=== PATIENT | male | born 1955 | race Caucasian/White ===

== ENCOUNTER 2018-11-26 10:04 | Inpatient (IN) | payer OTHER, SELFPAY ==
[2018-11-12 07:56] VITALS: BMI 36.8
[2018-11-26] VITALS (17 sets, daily range): BP systolic 125–159; BP diastolic 74–105; PULSE 64–100; RESP 12–18; TEMP 36.3–37.4; O2SAT 91–97; BMI 36.8
--- NOTE | 2018-11-26 | DI.RAD.S_ITS ---
PROCEDURE: XR LUMBAR SPINE 2-3V INDICATIONS: C 4-6, C5-6, C6-7 ACDF W/ ANTERIOR INSTRUMENTATION TECHNIQUE: Multiple intraoperative fluoroscopic views of the lumbar spine were acquired. COMPARISON: [facility], , L-SPINE 2-3 VIEWS, 12/19/2006, 10:08. FINDINGS: Bones: Intraoperative fluoroscopic views demonstrate anterior fusion and discectomy of the lower cervical spine. IMPRESSION: Fluoroscopic spot images of ACDF of the lower cervical spine. Dictated by: Margarita Wiggins M.D. on 11/26/2018 at 15:01 Approved by: Margarita Wiggins M.D. on 11/26/2018 at 15:02
[2018-11-26] MEDS: LACTATED RINGERS 1,000 ML 42 ML IV ×2 (11:32→12:58)
--- NOTE | 2018-11-26 11:47 | PM.PREOP ---
Pre-operative Note Interval Note History & Physical reviewed/Exam performed by Physician: Yes Changes to H&P: No
[2018-11-26] MEDS: CEFAZOLIN 2 GM/100 ML FROZ.PIGGY IV ×2 (12:20→19:57)
--- NOTE | 2018-11-26 13:04 | SUR.OPER ---
Supine on padded OR bed, head on donut, rolled towel between shoulders vertically, arms tucked at sides with gel pads and wrapped with drawsheet, legs uncrossed, safety belt at thigh, tape over blanket over lower legs.
--- NOTE | 2018-11-26 13:26 | PC.NURSE ---
Day shift: Pt not on AC unit at this time.
[2018-11-26] MEDS: BUPIVACAINE 0.25% W/ EPI 30 ML VIAL INJ (14:46)
--- NOTE | 2018-11-26 14:53 | PM.OP.1 ---
Operative Date/Time/Diagnoses Date of procedure: 11/26/18 Time of procedure: 12:54 Pre-op diagnosis: 1. C4-5, C5-6 spinal stenosis 2. 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 C4-5, C5-6 anterior cervical diskectomy and fusion 2. C4-5, C5-6 anterior interbody cage placement 3. C4-5, C5-6 anterior instrumentation with plate and screw placement in C4, C5 and C6 vertebrae 4. Utilization of microsurgical technique and operating microscope Same procedure as scheduled: Yes Indications: Patient has been having chronic neck pain and worsening cervical radiculopathy. Patient failed multiple conservative management with worsening pain weakness and numbness in her upper extremity. Patient has been having difficulty performing activity of daily living. After discussing risks benefits of treatment options, patient elected proceed with surgery. Surgeon: Sarina Carter Software Program Manager: Richard Hussein Click Yes if Unassisted: No Anesthesia Type: General Operative Notes Closure Type: primary Specimen(s): none sent Prosthetic devices, grafts, tissues, transplants, or devices: Globus extend plate, PEEK cages Estimated Blood Loss (mL): 50 Blood products transfused: none Procedure in detail: Patient was seen in the preoperative area. Risks and benefits of the surgery was discussed with the patient. Operative consent was obtained and placed in the chart. Patient was then taken to the operative room. Prophylactic antibiotic was given less than 0.5 hr prior to skin incision. General anesthesia was administered. Patient was placed into a supine position on her radiolucent table. Bilateral shoulders were taped down to allow proper C-arm imaging. Anterior cervical area was prepped and draped in a sterile fashion. Time-out was performed at this time. Using lateral C-arm imaging, the level between C4 and C6 was identified and marked on patient's neck. A oblique incision from midline towards medial border of sternocleidomastoid muscle was made. The platysma muscle was incised in line with skin incision. Metzenbaum scissor was used to develop the plane between the medial border of sternocleidomastoid d and the strap muscles medially. The carotid sheath and its contents were identified and protected behind the hand-held retractor during the entire case. The plane between the carotid sheath and strap muscles was developed with Metzenbaum scissors. Dissection was made down to the level of the anterior cervical fascia. Longus colli muscle was incised on the anterior aspect of vertebral bodies bilaterally from C4-C6. Spinal needle was placed into the C4-5 disc space and confirmed with lateral C-arm imaging. Using microsurgical technique and operative microscope, anterior cervical diskectomy was performed at C4-5 and C5-6 level. This was done by removing the disc material, removing the anterior and posterior osteophytes posterior longitudinal ligaments along with performing bilateral foraminotomies at both levels. Patient was found to have severe central and foraminal stenosis at both levels. Patient's stenosis was fully decompressed after decompression was completed. After the diskectomy was completed, 2 anterior interbody cages were obtained. The cages were packed with DBM bone grafting material. One cage each along with the bone grafting material was then packed into the interbody spaces from C4-6 with one cage into each interbody level. There was large anterior osteophytes at C5 and C6 level. Rongeur was used to removed anterior osteophytes from both anterior and posterior aspects of C4-C5 and C6 level for decompression purposes as well as to improve hardware fitting. After the cages were placed, the anterior cervical plate was stabilized to the C4-C6 vertebrae using 2 screws at each each level. Total 6 screws were placed. After confirming placement of the hardware with AP and lateral C-arm imaging, the screws were locked into the plate using the locking mechanism and torque limiting screwdriver. After the hardware was placed and confirmed with AP and lateral C-arm imaging, the wound was irrigated with sterile normal saline. The platysma muscle and the subcutaneous tissue was closed with 2-0 Vicryl. The skin was closed with 4-0 Monocryl and Steri-Strips. Patient tolerated the procedure well. Patient was transferred recovery room in stable condition. There were no complications. Complications: none Post-operative Condition: stable Disposition: PACU Plan for aftercare: Admit to inpatient hospital
[2018-11-26] MEDS: fentaNYL 100 MCG/2 ML INJ 50 MCG IV ×3 (15:37→16:02)
[2018-11-26] MEDS: SODIUM CHLORIDE 0.9% 1,000 ML 100 ML IV (17:05)
[2018-11-26] MEDS: GABAPENTIN 300 MG CAPSULE PO (17:11)
[2018-11-26] MEDS: OXYCODONE IR 5 MG TABLET 10 MG PO ×3 (17:11→23:02)
[2018-11-26] MEDS: PRAMIPEXOLE 1 MG TABLET 1.5 MG PO (17:12)
[2018-11-26] MEDS: hydrOXYzine pamoate 25 MG CAPSULE PO ×2 (17:38→21:45)
[2018-11-26] MEDS: HYDROMORPHONE 1 MG INJ 0.5 MG IV (18:32)
[2018-11-26] MEDS: SENNOSIDES 8.6 MG TABLET 17.2 MG PO (19:56)
[2018-11-26] MEDS: PANTOPRAZOLE 40 MG TABLET PO (19:56)
[2018-11-26] MEDS: DOCUSATE 100 MG CAPSULE PO (19:57)
[2018-11-26] MEDS: BUSPIRONE 15 MG TABLET PO (19:59)
[2018-11-27 00:10] VITALS: BP 118/72; PULSE 94; RESP 20; TEMP 37.1; O2SAT 95
[2018-11-27] MEDS: OXYCODONE IR 5 MG TABLET 10 MG PO ×3 (03:31→11:05)
[2018-11-27] MEDS: hydrOXYzine pamoate 25 MG CAPSULE PO (03:32)
[2018-11-27] MEDS: CEFAZOLIN 2 GM/100 ML FROZ.PIGGY IV (03:33)
[2018-11-27] MEDS: SODIUM CHLORIDE 0.9% 1,000 ML 100 ML IV (03:35)
[2018-11-27 04:22] VITALS: PULSE 71; RESP 16; O2SAT 96
[2018-11-27 05:57] VITALS: BP 124/72; PULSE 71; RESP 18; TEMP 37.4; O2SAT 97
[2018-11-27] MEDS: ACETAMINOPHEN 325 MG TABLET 650 MG PO (07:35)
[2018-11-27 08:00] VITALS: BP 136/81; PULSE 84; RESP 17; TEMP 37.2; O2SAT 96
[2018-11-27] MEDS: GABAPENTIN 600 MG TABLET PO (08:27)
[2018-11-27] MEDS: buPROPion XL 150 MG TAB 300 MG PO (08:27)
[2018-11-27] MEDS: PRAMIPEXOLE 1 MG TABLET 1.5 MG PO (08:27)
[2018-11-27] MEDS: DOCUSATE 100 MG CAPSULE PO (08:27)
[2018-11-27] MEDS: PANTOPRAZOLE 40 MG TABLET PO (08:27)
[2018-11-27] MEDS: buPROPion SR 150 MG TAB PO (08:27)
[2018-11-27 09:26] VITALS: O2SAT 95
--- NOTE | 2018-11-27 10:14 | OT.IP.EVAL ---
Current Diagnoses Other spondylosis with radiculopathy, cervical region (11/26/18) Spinal stenosis, cervical region (11/26/18) Surgery Performed Operation Date: 11/26/18 12:15 Actual Procedures p C4-5,C5-6 ACDF w/anterior instrumentation - Sarina Carter MD Past Medical History (Last Updated 11/12/18 @ 14:41 by Mariah Mckeon RN) Anxiety (Acute) Arthritis (Acute) Back pain (Acute) Compartment syndrome (Acute ~2012) Dizziness (Acute) Fatty liver (Acute) GERD (gastroesophageal reflux disease) (Acute) Gout (Acute ~1989) HLD (hyperlipidemia) (Acute) Kidney stones (Acute) Neck pain (Acute) Numbness (Acute) Numbness and tingling in left arm (Acute) CINDI on CPAP (Acute) Pneumonia (Acute) RBBB (right bundle branch block) (Acute) RLS (restless legs syndrome) (Acute) Surgical History (Last Updated 11/12/18 @ 09:28 by Mariah Mckeon RN) Hx of arthroscopy of left knee (Acute) Hx of elbow surgery (Acute) Hx of right inguinal hernia repair (Acute) Hx of tonsillectomy (Acute) Hx of umbilical hernia repair (Acute) Status post left unicompartmental knee replacement (Acute ~2012) Occupational Therapy Inpatient Evaluation/Re-Eval M1 PT/OT-IP Prior Functional Status Start: 11/27/18 08:25 Freq: NEEDED Status: Active Protocol: Document 11/27/18 10:14 PJJason (Rec: 11/27/18 12:58 PJM [id number]) Medical Review Prior Functional Status Medical History Reviewed Yes Diet/Fluid Consistency Regular Communication WNL Mobility and Gait Pt was independent with all mobility without a device. Activities of Daily Living and IADL's Independent for ADLs, IADLs, driving. Prior Functional Level (Other details) Pt is retired, but very active . 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 Social History Household Members family Living Arrangements House Number of Floors (Floors) One Floor Number of Stairs To Enter/Railing? 2 HOLGER without rails to enter Home Environment Standard Height Toilet,Walk in Shower Home Equipment Front Wheel Walker,Straight Cane,Shower Seat with Backrest Employment Status Retired Additional Social History Comment Pt lives in [facility] with his dtr and 2 grandchildren ages 4 yrs and 16 months. His mother and friend Samira will stay with him temporarily to assist if needed. M2 OT-IP Current Condition Start: 11/27/18 12:37 Freq: Status: Active Protocol: Document 11/27/18 10:14 PJM (Rec: 11/27/18 12:58 PJ [id number]) Occupational Therapy Current Condition Current Condition Evaluation Date 11/27/18 Treatment Diagnosis decr'd self care s/p C4-6 ACDF Diagnosis Onset Date 11/26/18 Post Operative Precautions Cervical Spine Precautions Soft Collar for Comfort,No Heavy Lifting,Log Roll M3 OT- IP Subjective and Pain Start: 11/27/18 12:37 Freq: Status: Active Protocol: Document 11/27/18 10:14 PJM (Rec: 11/27/18 12:58 PJ [id number]) OT- Subjective Occupational Therapy Visit Type Type Initial Evaluation Visit Start Time 09:43 Visit Stop Time 10:14 Total Visit Minutes 31 Notes Pt's girlfriend here for education this session. Occupational Therapy Visit Comments Patient Comments I feel really good today. The pain over my L shoulder blade is gone. Patient/Caregiver Goals to get back to active life and go on vacation in early December to [place] OT Pain Assessment Pain When Pain Assessed After Treatment Pain Present Pain Present Pain Reported Location Posterior Neck Intensity 2 Scale Used Numeric (1 - 10) Description Aching,Acute Pain Behaviors Guarding Management Techniques Distraction,Re-positioning, Timing of Activity with Medications M4 OT- IP ADL's Start: 11/27/18 12:37 Freq: Status: Active Protocol: Document 11/27/18 10:14 PJM (Rec: 11/27/18 12:58 PJ [id number]) OT STI-Rvol-Bvygjwc General Evaluation Self-Feeding Ability Independent Comments OT Self-Feeding Comments pt declines any swallowing deficits OT ADL-Grooming General Evaluation Grooming Ability Independent Comments OT Grooming Comments standing at sink OT ADL-Oral Care General Eval Oral Care Ability Independent Comments Oral Care Comments standing at sink OT ADL-Dressing General Eval Upper Body Dressing Ability Standby Assistance Lower Body Dressing Ability Independent Comments OT Dressing Comments Provided education re: body mechanics OT ADL-Toileting General Evaluation Toileting Ability Independent OT ADL-Bathing Bathing Type Bathing Type Shower Comments OT Bathing Comments pt declines to shower here; provided education re: body mechanics and methods to keep incision dry, girlfriend can assist PRN M5 OT- IP IADL's Start: 11/27/18 12:37 Freq: Status: Active Protocol: Document 11/27/18 10:14 PJM (Rec: 11/27/18 12:58 PJM [id number]) OT-Instrumental Activities of Daily Living Deficits IADL Deficits Identified Deficits Home Safety Awareness Awareness of Need for Assistance at Home Good Awareness Ability to Problem Solve Emergency Able to Problem Solve Situations Medication Management Medication Management No Deficits Identified Money Management Money Management No Deficits Identified Meal Preparation Meal Preparation Caregiver Provides Assist Meal Preparation Comments family to assist PRN Biostatistics Professor Biostatistics Professor Caregiver Provides Assist Biostatistics Professor Comments family to assist PRN Driving Driving Caregiver Provides Assist Driving Comments family to assist PRN M6 OT- IP Functional Cognition Start: 11/27/18 12:37 Freq: Status: Active Protocol: Document 11/27/18 10:14 PJM (Rec: 11/27/18 12:58 PJM [id number]) Cognitive Factors Limiting Selfcare Function Cognitive Ability Level of Alertness Alert Patient Orientation Name,Age,Birthday,Month,Date, Year,Day of Week,Place, Situation Attention Span Ability Capable of Focused Attention, Capable of Sustained Attention Ability to Follow Commands Able to Follow Multi-Step Commands Memory Description No Deficits Noted Safety Awareness No Deficits Noted Problem Solving Ability No deficits Noted Executive Function Ability No Deficits Noted Cognitive Comments Cognitive Assessment Comments Pt demonstrates and verbalizes good understanding of C spine precautions and all education OT- Vision and Hearing OT- Hearing Assessment OT- Hearing Assessment WFL OT- Vision Assessment Visual Acuity WFL M7 OT- IP Mobility and Balance Start: 11/27/18 12:37 Freq: Status: Active Protocol: Document 11/27/18 10:14 PJM (Rec: 11/27/18 12:58 PJM [id number]) OT- Bed Mobility Assessment Rolling Type of Rolling Log Rolling,Roll to Right Level of Assistance Independent Supine to Sit Supine to Sit Assist Independent Scooting Scooting to Edge of Bed Independent OT-Transfer Assessment Sit to and From Stand Sit to and from Stand Independent Transfers Transfer Ability Independent Technique Transfer Destination Bed,Car,Toilet Transfer Technique Stand Step Pivot Devices Transfer Assistive Devices None Comments Mobility Comments Pt up in room ad kiki without a device OT- Gait Assessment Gait Gait Assistance Required: Independent Distance (Feet) 20 Assistive Devices Assistive Device None Comments Gait Ability Comments see P.T. notes for further details OT- Balance Assessment Sitting Balance and Reactions Static Sitting Balance Ability Good Dynamic Sitting Balance Ability Good Standing Balance and Reactions Static Standing Balance Ability Good Dynamic Standing Balance Ability Good M8 OT- IP Objective Assessments Start: 11/27/18 12:37 Freq: Status: Active Protocol: Document 11/27/18 10:14 PJM (Rec: 11/27/18 12:58 PJM [id number]) OT Gross Range of Motion Upper Extremity Range of Motion Assessment Within Functional Limits ROM Impairments did not test B shoulder scaption above 90 degrees due to recent C spine surgery, but WFL distally OT Strength Upper Extremity Strength Assessment Within Functional Limits Comments Strength Comments B shoulders at least 3/5 bu observation and WFL distally, no focal strength deficits OT- Coordination Assessment Comments Coordination Comments BUE WNL OT-Muscle Tone Assessment Muscle Tone WNL Yes OT Sensation Assessment Comments Summary Comments BUE WNL per pt Edema Edema Present M9 OT- IP Assessment and Plan Start: 11/27/18 12:37 Freq: Status: Active Protocol: Document 11/27/18 10:14 PJM (Rec: 11/27/18 12:58 PJM [id number]) OT Summary Assessment and Plan Potential Rehabilitation Potential Excellent Analytic Complexity at Evaluation Low Summary Progress Towards Goals Safe For Discharge Assessment Summary Low complexity OT assessment and all education completed with pt and his significant other today re: C spine precautions and adapted ADL techniques. They verbalize and demonstrate understanding of all education. Pt plans to d/c home today with 24 hr family assist today. No further OT services needed. Frequency of Treatment Frequency Of Treatment Discharge Discharge Recommendations OT Discharge Recommendations Home with Assistance Home Equipment Needs none
--- NOTE | 2018-11-27 11:30 | PC.NURSE ---
Day shift: Paperwork signed and all questions answered. Medicated for pain prior to car ride home. Taken to car in by DENTIST/OWNER. Pt has all personal belongings and MD scrips. Soft collar in place. Dressing is CDI.
--- NOTE | 2018-11-27 13:31 | CM.DANOTE ---
Discharge Planning/Care Management DCP: assessment: case received, EMR reviewed. Discussed in Team Rounds. Pt is a 63 year old male who admitted yesterday for a planned spinal/cervical surgery: Dr Carter. PPC: Salvador Jesus Payer: [employer]. Pt is functionally independent at baseline. OT/PT were ordered. OT note shows that pt did very well in the session, his girlfriend Samira participated in the caregiver training and will be assisting him at home. His mother will also offer prn assist. Went to check in with pt. KULWANT Kearns noted that he had been cleared for the d/c to home by ortho team. Soft Collar was in place. He d/c'd to home setting as per his plan with 21/10 family support before noon. CM Discharge Assessment Start: 11/27/18 13:29 Freq: Status: Discharge Protocol: Document 11/27/18 13:30 ITV (Rec: 11/27/18 13:31 ITV [id number]) Discharge Planning Assessment Advance Directives? Yes Advance Directives on File No History Provided By Medical Record Prior Living Arrangements House Household Members family Comment lives with his daughter and her 2 young children Discharge Plan Home Review Status In Process Pre-Anesthesia Assessment Start: 11/12/18 07:56 Freq: Status: Discharge Protocol: Document 11/12/18 07:56 CAB (Rec: 11/12/18 08:50 CAB [id number]) Pre-Anesthesia Assessment Patient Information Reviewed Via Phone Assessment Assessment Completed With Patient Diagnostic Results BMP/CMP,CBC,EKG Comment Outside labs/EKG scanned to record Primary Care Provider Salvador Jesus Medical Clearance Received Yes Seen Specialist in Last 12 Months Yes Specialist Seen Orthopedist Comment PCP pre-op clearance 10/05/18 scanned to record Primary Language [employer] Counter Representative Required No Height 185.42 cm Weight 126.552 kg Body Mass Index (BMI) 36.8 Hearing Ability Normal Visual Assist Magnifying Glass Dentition Type Full- Upper & Lower Barriers to Learning None Other Aids Yes: CPAP w/2L02 Hx Anesthesia Reactions No Hx Family Anesthesia Reaction No Hx Malignant Hyperthermia No Hx Blood Transfusions No Anesthesia Review Requested No alcohol intake former Alcohol Intake Frequency Other: Hx ETOH abuse, in remission Smoking Status Former smoker Tobacco type cigarettes how long ago did patient quit smoking Quit 1985 Substance Use Type marijuana Comment Edible marijuana Pain Present Pain Reported Musculoskeletal Symptoms Back Pain,Difficulty Walking, Joint Pain,Limited Range of Motion,Muscle Weakness,Neck Pain,Numbness,Radiating Pain into Limb,Tingling History of Falling (Recent or History of No ) Patient is completely paralyzed or No completely immobile Mental Status Oriented to own ability Is patient on oxygen? Yes Does patient have SAXENA/SOB Yes Hx Sleep Apnea Yes CPAP/BIPAP use prescribed and used routinely Will Bring CPAP/BIPAP DOS Yes Comment 2L02 bled into CPAP Currently Taking a Beta [place] No Can You Climb a Flight of Stairs Without No SOB Hx Chest Pain No Hx SOB Yes Hx Syncope or Dizziness Yes Anti-Coagulant Therapy No Has a Product Development Technician No Cardiac Testing No Hx Pacemaker/ICD No Pacemaker Rep Required? No Cardiac Clearance Received Not Applicable Diet Type At Home Regular dysphagia No Urinary Catheter Present No Hx Urinary Self Catheterization No Diabetes No Hx Drug Resistant Organism No Presence of External or Internal Medical Yes: CPAP Devices Marital Status Lives With none Prior Living Arrangements House Number of Floors (Floors) One Floor Support System Parent(s),Significant Other Does the Patient Have Assistance After Yes Surgery Patient Discharge Plan Description Return Home Comment Pt advised 1-2 night length of stay per Surgeon Feels Safe in Current Environment Yes Been Physically Hurt or Threatened By a No Person in Current Environment Do you have thoughts of harming yourself None or others? Are you currently considering suicide? No Do you have a plan to hurt yourself or No Plan others? Do You Have Any Spiritual Beliefs That No May Affect Your HC Choices? Do You Have Any Cultural Practices That No May Affect Your HC Choices? Comment LDS Who Can We Speak to About Patient's Care Family, friends Identifying Code for Release of Patient Declines to issue Information Health Care Proxy/Next of Kin Gloria (daughter) Health Care Proxy Emergency Contact Name Samira (GF) Emergency Contact Advance Directives? Yes: Information mailed to patient Advance Directives on File No Requested Patient Bring Advanced Yes Directives DOS PAC Instructions Bring CPAP/BIPAP,Do not shave/ clip surgical site,Durable medical equipment,Medications to take/avoid,Nasal antibiotic ,No ETOH/petroleum product on skin DOS,NPO,Post-op transportation,Pre-surgical wash,Sensory aids,Sturdy shoes /comfortable clothes,Do not bring valuables and remove jewelry
== END 2018-11-27 11:54 | disposition home or self-care (01) | DRG 473 ==
PROVIDERS: Admitting Provider Orthopaedic Surgery Orthopaedic Surgery of the Spine; Family Provider Family Medicine; PCP Family Medicine; Visit Provider Orthopaedic Surgery Orthopaedic Surgery of the Spine
PROC: 0RG20A0 Fusion of 2 or more Cervical Vertebral Joints with Interbody Fusion Device, Anterior Approach, Anterior Column, Open Approach (ICD-10-PCS; principal; 2018-11-26 12:15)
DX: M48.02 Spinal stenosis, cervical region (principal); M47.22 Other spondylosis with radiculopathy, cervical region; G47.30 Sleep apnea, unspecified; G25.81 Restless legs syndrome; F32.9 Major depressive disorder, single episode, unspecified; M25.78 Osteophyte, vertebrae
CPT/HCPCS: 72100; 76000; 94660; 94760; 97161; 97165; 97535; C1776; J0690; J1100; J1170; J2250; J2405; J2704; J3010

== ENCOUNTER 2019-08-28 07:39 | Emergency (ER) | payer OTHER, SELFPAY ==
[2018-11-26 16:30] VITALS: BMI 36.8
--- NOTE | 2019-08-28 07:42 | ED_ITS ---
HPI - Eye Problem General Chief complaint: Eye Problems Stated complaint: RT EYE/ RED Time Seen by Provider: 08/28/19 07:42 Source: patient Mode of arrival: Ambulatory Limitations: no limitations History of Present Illness HPI Narrative: 64M former smoker with history of GERD presents with a redness to his right over the course of the past day or 2. He denies any injury nor change in vision. He denies any pain. He states there has at times bit of a film overlying his visual field but if he blinks it improves. He had a little bit of drainage of 1 point but not in an ongoing fashion. He denies the use of con tacts. He denies any recent welding, exposure to UV light or other Related Data Home Medications Medication Instructions Recorded Confirmed pramipexole [Mirapex] 1.5 mg PO QD-BID PRN #0 10/12/10 11/26/18 bupropion HCl 300 mg PO QAM 11/12/18 11/26/18 bupropion HCl [Wellbutrin SR] 150 mg PO DAILY 11/12/18 11/26/18 buspirone 15 mg PO BEDTIME 11/12/18 11/26/18 gabapentin 300 mg PO TID PRN 11/12/18 11/26/18 meclizine 25 mg PO DAILY PRN 11/12/18 11/12/18 ondansetron 8 mg PO Q12H PRN 11/12/18 11/12/18 pantoprazole [Protonix] 40 mg PO BID 11/12/18 11/26/18 tadalafil [Cialis] 5 mg PO DAILY 11/12/18 11/12/18 testosterone [Fortesta] 5 pump TRANSDERMAL QAM 11/12/18 11/26/18 Previous Rx's Medication Instructions Recorded acetaminophen 650 mg PO Q6HR PRN #60 tab 11/27/18 docusate sodium [DOK] 100 mg PO BID #60 cap 11/27/18 hydroxyzine pamoate 25 mg PO Q4HR PRN #60 cap 11/27/18 oxycodone 10 mg PO Q4-6H PRN #60 tab 11/27/18 Allergies Allergy/AdvReac Type Severity Reaction Status Date / Time triazolam [From Halcion] AdvReac Severe Violent, Verified 11/12/18 09:12 aggitated zolpidem [From Ambien] AdvReac Severe Made me do Verified 11/12/18 09:12 crazy things Review of Systems Constitutional Constitutional: Denies chills, Denies fatigue, Denies fever(s), Denies frequent falls, Denies lethargy and Denies weakness Eyes Eyes: Denies change in vision, Reports eye discharge, Denies irritation and Denies loss of vision ENT Ears, Nose, Mouth, and Throat: Denies change in voice, Denies dizziness, Denies neck pain, Denies sore throat and Denies throat swelling Cardiovascular Cardiovascular: Denies chest pain, Denies irregular heart rhythm, Denies lightheadedness, Denies palpitations, Denies dyspnea, Denies dyspnea on exertion and Denies orthopnea Respiratory Respiratory: Denies cough, Denies dyspnea, Denies dyspnea on exertion and Denies wheezing Gastrointestinal Gastrointestinal: Denies abdominal pain, Denies change in bowel habits, Denies diarrhea, Denies nausea and Denies vomiting Genitourinary Genitourinary: Denies hematuria, Denies flank pain, Denies urinary incontinence and Denies urinary urgency Musculoskeletal Musculoskeletal: Denies back pain, Denies muscle weakness, Denies neck pain, Denies numbness and Denies tingling Integumentary/Breasts Skin/Breast: Denies pruritus, Denies erythema, Denies rash and Denies wounds Neurologic Neurologic: Denies behavioral changes, Denies confusion, Denies dizziness, Denies frequent falls, Denies loss of vision, Denies numbness, Denies tingling and Denies weakness Psychiatric Psychiatric: Denies anxiety, Denies behavioral changes, Denies confusion, Denies depression, Denies homicidal ideation and Denies suicidal ideation Endocrine Endocrine: Denies fatigue, Denies flushing and Denies palpitations Hematologic/Lymphatic Hematologic/Lymphatic: Denies easy bruising Allergic/Immunologic Allergic/Immunologic: Denies urticaria, Denies throat swelling and Denies wheezing Patient History Medical History Anxiety (Acute) Arthritis (Acute) Back pain (Acute) Compartment syndrome (Acute ~2012) Dizziness (Acute) Fatty liver (Acute) GERD (gastroesophageal reflux disease) (Acute) Gout (Acute ~1989) HLD (hyperlipidemia) (Acute) Kidney stones (Acute) Neck pain (Acute) Numbness (Acute) Numbness and tingling in left arm (Acute) CINDI on CPAP (Acute) Pneumonia (Acute) RBBB (right bundle branch block) (Acute) RLS (restless legs syndrome) (Acute) Surgical History Hx of arthroscopy of left knee (Acute) Hx of elbow surgery (Acute) Hx of right inguinal hernia repair (Acute) Hx of tonsillectomy (Acute) Hx of umbilical hernia repair (Acute) Status post left unicompartmental knee replacement (Acute ~2013) Social History household members: family Smoking Status: Former smoker alcohol intake: current Smoking Status: Former smoker alcohol intake frequency: 0-2 drinks per day Substance Use Type: marijuana Exam Narrative Exam Narrative: GEN: AOx3 and in mild distress EYES: Pupils are equal, round, and reactive to light and accommodation. Extraoccular muscles are intact bilaterally. R sided subconjunctival hemorrhage. No FB noted. No dye uptake with fluorescein. CHEST: Lungs are clear to auscultation bilaterally and free of wheezes, rales, or rhonchi. Heart rate is regular rhythm, there are no murmurs, clicks, rubs, or gallops. There is no chest wall tenderness. ABD: Abdomen is soft and nontender. There is no guarding or rebound. Bowel sounds are normal in all 4 quadrants. There is no mass or organomegaly. EXT: Full painless ROM of all extremities with no loss of sensation or strength. SKIN: Warm, pink, and dry. No erythema or rash Initial Vital Signs Initial Vital Signs: Vital Signs Temperature 96 F L 08/28/19 07:52 Pulse Rate 83 08/28/19 07:52 Respiratory Rate 13 08/28/19 07:52 Blood Pressure 168/93 H 08/28/19 07:52 Pulse Oximetry 96 08/28/19 07:52 Course Orders Ordered: Discontinued Medications Fluorescein Sodium (Ful-Juanita) 1 mg EYE-RIGHT NOW ONE Stop: 08/28/19 07:45 Last Admin: 08/28/19 07:51 Dose: 1 mg Documented by: FEDERICO Proparacaine HCl (Parcaine 0.5% Ophth Amaya) 1 drops EYE-RIGHT NOW ONE Stop: 08/28/19 07:43 Last Admin: 08/28/19 07:50 Dose: 1 drop Documented by: FEDERICO Sulfacetamide (Bleph-10 Prepack) 1 bottle MISC SEEINSTR ONE Stop: 08/28/19 08:02 Last Admin: 08/28/19 08:24 Dose: 1 bottle Documented by: FEDERICO Vital Signs Vital signs: Vital Signs - 8 hr 08/28/19 07:52 08/28/19 08:26 Temperature 96 F L Pulse Rate 83 80 Respiratory Rate 13 Blood Pressure 168/93 H 152/72 H Pulse Oximetry 96 MDM - Eye Problem MDM Narrative Medical decision making narrative: Multiple etiologies for patient's symptoms considered including: [Conjunctivitis versus foreign body versus angle closure glaucoma versus other] Patient's symptoms improved or duration of stay with above-stated therapies. Findings and discharge diagnosis discussed with patient/family followed by verbalization of understanding Return precautions discussed with patient/family whom verbalize understanding. Discharge Plan Departure Patient Disposition: Home Clinical Impression: Subconjunctival bleed Qualifiers: Laterality: right Qualified Code(s): H11.31 - Conjunctival hemorrhage, right eye Conjunctivitis Qualifiers: Conjunctivitis type: acute Acute conjunctivitis type: unspecified Laterality: right Qualified Code(s): H10.31 - Unspecified acute conjunctivitis, right eye Discharge Date/Time: 08/28/19 08:27 Instructions: Conjunctivitis, DI for Subconjunctival Hemorrhage Activity Restrictions/Additional Instructions: *You have been diagnosed with [ subconjunctival hemorrhage with possible early conjunctivitis ] *What to do: *Take medications as directed *Follow up with your primary care provider in 2-3 days, call for an appointment. Let them know you were seen in the Emergency Department and that we ask that you be seen in follow up *Return to ER if you should have any new, worsening or concerning symptoms, such as [deep eye pain, vision change, or other worsening symptoms ] Prescriptions: No Action pramipexole [Mirapex] 0.25 MG tablet 1.5 mg PO QD-BID PRN (Reason: RLS) Qty: 0 RF: 0 ondansetron 8 mg Tablet,Disintegrating 8 mg PO Q12H PRN (Reason: Nausea) RF: 0 meclizine 25 mg Tablet 25 mg PO DAILY PRN (Reason: Dizziness) RF: 0 pantoprazole [Protonix] 40 mg Tablet,Delayed Release (Dr/Ec) 40 mg PO BID RF: 0 gabapentin 300 mg Capsule 300 mg PO TID PRN (Reason: RLS) RF: 0 buspirone 15 mg Tablet 15 mg PO BEDTIME RF: 0 bupropion HCl 300 mg Tablet Extended Release 24 Hr 300 mg PO QAM RF: 0 tadalafil [Cialis] 5 mg Tablet 5 mg PO DAILY RF: 0 testosterone [Fortesta] 10 mg/0.5 gram /actuation Gel In Metered-Dose Pump 5 pump TRANSDERMAL QAM RF: 0 bupropion HCl [Wellbutrin SR] 150 MG tablet sustained-release 12 hr 150 mg PO DAILY RF: 0 acetaminophen 325 mg Tablet 650 mg PO Q6HR PRN (Reason: Pain, Mild (1-3)) Qty: 60 RF: 0 docusate sodium [DOK] 100 mg Capsule 100 mg PO BID Qty: 60 RF: 0 oxycodone 5 mg Tablet 10 mg PO Q4-6H PRN (Reason: Pain, Severe (7-10)) Qty: 60 RF: 0 hydroxyzine pamoate 25 mg Capsule 25 mg PO Q4HR PRN (Reason: Nausea And Vomiting) Qty: 60 RF: 0 Referrals: Dario Cooper MD [Physician] - Salvador Jesus DO [Primary Care Provider] -
[2019-08-28] MEDS: PROPARACAINE 0.5% OPHTH SOL 1 DROPS EYE-RIGHT (07:50)
[2019-08-28] MEDS: FLUORESCEIN 1 MG STRIP EYE-RIGHT (07:51)
[2019-08-28 07:52] VITALS: BP 168/93; PULSE 83; RESP 13; TEMP 35.5; O2SAT 96
[2019-08-28] MEDS: SULFACETAMIDE 10% OPHTH PREPACK 1 BOTTLE MISC (08:24)
[2019-08-28 08:26] VITALS: BP 152/72; PULSE 80
--- NOTE | 2019-08-28 08:26 | PC.NURSE ---
eye exam by
== END 2019-08-28 08:27 | disposition home or self-care (01) ==
PROVIDERS: Emergency Provider Emergency Medicine; Family Provider Family Medicine; PCP Family Medicine
DX: H11.31 Conjunctival hemorrhage, right eye (principal); H10.31 Unspecified acute conjunctivitis, right eye
CPT/HCPCS: 99282

== ENCOUNTER → 2020-05-16 14:49 | Outpatient (CLI) | payer OTHER, SELFPAY ==
[2018-11-26 16:30] VITALS: BMI 36.8
[2020-05-16 15:57] LABS: BUN Creatinine Ratio 17.6 (6-22); Blood Urea Nitrogen 16 mg/dL (9-20); Calcium 9.5 mg/dL (8.4-10.2); Carbon Dioxide 32 mmol/L (22-32); Chloride 105 mmol/L (98-107); Estimated Glomerular Filt Rate > 60.0 mL/min (>60); Glucose 99 mg/dL (80-110); HEMOLYSIS < 15 (0-50); Sodium 139 mmol/L (137-145)
== END ==
PROVIDERS: Family Provider Family Medicine; PCP Family Medicine; Referring Provider Internal Medicine Cardiovascular Disease; Visit Provider Internal Medicine Cardiovascular Disease
DX: I10 Essential (primary) hypertension (principal)
CPT/HCPCS: 36415; 80048

== ENCOUNTER → 2020-09-05 09:45 | Outpatient (CLI) | payer MEDICARE, OTHER, SELFPAY ==
[2018-11-26 16:30] VITALS: BMI 36.8
--- NOTE | 2020-09-05 10:00 | DI.CT.S_ITS ---
PROCEDURE: CT CHEST WO CON INDICATIONS: shortness of breath TECHNIQUE: Noncontrast 5 mm thick sections acquired from the pulmonary apices to the posterior costophrenic angles. 1 mm lung window, 5 mm thick coronal and sagittal and 7 mm axial MIP reformats were then acquired. For radiation dose reduction, the following was used: automated exposure control, adjustment of mA and/or kV according to patient size. COMPARISON: None. FINDINGS: Image quality: Excellent. Lungs and pleura: No acute air space opacities. No pleural effusions or pneumothorax. Central and peripheral airways are patent and normal in caliber. Mediastinum: Heart size is normal. No pericardial effusion. No mediastinal adenopathy by size criteria. Thoracic aorta and central pulmonary arteries are normal in size. Esophagus is normal in caliber. No hiatal hernia. Bones and chest wall: No suspicious bony lesions. No vertebral body compression fractures. No axillary or supraclavicular adenopathy by size criteria. Thyroid gland appears normal where well seen . Abdomen: Visualized upper abdominal solid organs and bowel loops appear normal in the absence of contrast. IMPRESSION: Normal for age, source of current shortness of breath symptoms is not seen. Dictated by: Gagan Pierce M.D. on 09/05/2020 at 11:20 Approved by: Gagan Pierce M.D. on 09/05/2020 at 11:22
== END ==
PROVIDERS: Family Provider Family Medicine; PCP Family Medicine; Referring Provider Physician Assistant; Visit Provider Physician Assistant
DX: R06.02 Shortness of breath (principal); R91.1 Solitary pulmonary nodule
CPT/HCPCS: 71250

== ENCOUNTER 2020-11-09 11:52 | Observation (INO) | payer MEDICARE, OTHER, SELFPAY ==
[2018-11-26 16:30] VITALS: BMI 36.8
[2020-11-09] VITALS (10 sets, daily range): BP systolic 133–170; BP diastolic 78–99; PULSE 64–80; RESP 14–16; TEMP 36.6–37.1; O2SAT 94–98; BMI 36.9
--- NOTE | 2020-11-09 12:08 | DI.RAD.S_ITS ---
PROCEDURE: XR CHEST 1V INDICATIONS: Possible stroke TECHNIQUE: One view of the chest was acquired. COMPARISON: [facility], CT, THORAX WITHOUT CONTRAST, 03/16/2015, 11:17. [facility], CR, CHEST 2 VIEW, 11/06/2010, 11:04. [facility], CR, CHEST 2 VIEW, 10/24/2010, 9:10. FINDINGS: Surgical changes and devices: ACDF. Lungs and pleura: Lungs are clear. No pleural effusions or pneumothorax. Mediastinum: Mediastinal contours appear normal. Heart size appears prominent. Bones and chest wall: No suspicious bony lesions. Overlying soft tissues appear unremarkable. IMPRESSION: No acute cardiopulmonary abnormality. Heart size appears prominent. Dictated by: Tu Garcia M.D. on 11/09/2020 at 12:54 Approved by: Tu Garcia M.D. on 11/09/2020 at 12:55
--- NOTE | 2020-11-09 12:09 | DI.CT.S_ITS ---
PROCEDURE: CT HEAD/BRAIN WO CON INDICATIONS: neuro changes/difficulty speaking TECHNIQUE: Noncontrast 4.5 mm thick angled axial sections acquired from the foramen magnum to the vertex, with coronal and sagittal reformats. For radiation dose reduction, the following was used: automated exposure control, adjustment of mA and/or kV according to patient size. COMPARISON: [facility], CT, HEAD WITHOUT CONTRAST, 10/12/2010, 9:09. [facility], CR, XR CHEST 1V, 11/09/2020, 12:13. FINDINGS: Image quality: Mild streak artifact can be seen through the skull base. CSF spaces: Basal cisterns are patent. No extra-axial fluid collections. The ventricles are symmetric in size and shape. Brain: No intracranial bleeds or masses. There is cerebral volume loss for age, with resultant ventricular and sulcal prominence. There are periventricular and deep white matter chronic small vessel ischemic changes. There is intracranial internal carotid artery atherosclerosis. Skull and face: Calvarium and visualized facial bones appear intact, without suspicious lesions. Sinuses: Visualized sinuses and mastoids are clear. IMPRESSION: No milo, acute intracranial abnormality is seen by noncontrast CT. No acute intracranial hemorrhage is seen. Note is made of age-appropriate brain parenchymal volume loss and chronic small vessel ischemic changes. If there is strong clinical suspicion for an acute stroke, please consider a brain MRI for further evaluation, as it is more sensitive (assuming that there is no contraindication to MRI). Dictated by: Robert Saini M.D. on 11/09/2020 at 11:36 Approved by: Robert Saini M.D. on 11/09/2020 at 11:38
--- NOTE | 2020-11-09 12:46 | ED_ITS ---
HPI - Neuro Symptoms/Deficit General Chief Complaint: Neuro Symptoms/Deficit Stated Complaint: BP 190/something, Groggy Time Seen by Provider: 11/09/20 12:10 Source: patient Mode of arrival: Ambulatory Limitations: no limitations History of Present Illness HPI Narrative: Patient is a 65-year-old male. Has a prescription for lisinopril but states he does not take this medicine. He states that normally his blood pressure has a top number in the 120s so he does not feel like he needs this medication. He states that he is here in the emergency department and [facility]. He states he was talking with his girlfriend this morning on the phone. He states that she was concerned with how he was talking so she was the 1 who contacted EMS. They came to his house. He was found to be hypertensive. He declined to be transported so he came by private vehicle. He states that he does feel like he is talking slower than normal. He does not feel like he is slurring his words. He states that on Friday of this week (4 days ago) he was talking with his daughter on the phone in he remembers her saying something about how he was speaking different. He did not notice it until this morning. He does state that he feels very weak and tired. Last evening he did walk out to the mailbox but was very tired with returning. He does have chronic lower back pain. Takes no opioid pain medication for this. On Anticoagulants: No Related Data Home Medications Medication Instructions Recorded Confirmed pramipexole 0.25 mg tablet 1.5 mg PO QD-BID PRN #0 10/12/10 11/26/18 (Mirapex) bupropion HCl 150 mg tablet,12 hr 150 mg PO DAILY 11/12/18 11/26/18 sustained-release (Wellbutrin SR) bupropion HCl 300 mg 24 hr tablet, 300 mg PO QAM 11/12/18 11/26/18 extended release buspirone 15 mg tablet 15 mg PO BEDTIME 11/12/18 11/26/18 gabapentin 300 mg capsule 300 mg PO TID PRN 11/12/18 11/26/18 meclizine 25 mg tablet 25 mg PO DAILY PRN 11/12/18 11/12/18 ondansetron 8 mg disintegrating 8 mg PO Q12H PRN 11/12/18 11/12/18 tablet pantoprazole 40 mg tablet,delayed 40 mg PO BID 11/12/18 11/26/18 release (Protonix) tadalafil 5 mg tablet (Cialis) 5 mg PO DAILY 11/12/18 11/12/18 testosterone (Fortesta) 5 pump TRANSDERMAL QAM 11/12/18 11/26/18 Previous Rx's Medication Instructions Recorded acetaminophen 325 mg tablet 650 mg PO Q6HR PRN #60 tab 11/27/18 docusate sodium 100 mg capsule 100 mg PO BID #60 cap 11/27/18 (DOK) hydroxyzine pamoate 25 mg capsule 25 mg PO Q4HR PRN #60 cap 11/27/18 oxycodone 5 mg tablet 10 mg PO Q4-6H PRN #60 tab 11/27/18 Allergies Allergy/AdvReac Type Severity Reaction Status Date / Time triazolam [From Halcion] AdvReac Severe Violent, Verified 11/09/20 12:03 aggitated zolpidem [From Ambien] AdvReac Severe Made me do Verified 11/09/20 12:03 crazy things Review of Systems Constitutional Constitutional: Reports fatigue, Denies fever(s), Denies headache(s) and Reports malaise Eyes Eyes: Reports as per HPI and Denies change in vision ENT Ears, Nose, Mouth, and Throat: Denies headache(s) Cardiovascular Cardiovascular: Reports as per HPI and Denies dyspnea Respiratory Respiratory: Denies cough and Denies dyspnea Gastrointestinal Gastrointestinal: Denies abdominal pain, Denies nausea and Denies vomiting Genitourinary Genitourinary: Reports system reviewed and no additional complaints, except as documented Musculoskeletal Musculoskeletal: Reports back pain, Reports muscle weakness, Denies myalgias, Denies numbness and Denies tingling Integumentary/Breasts Skin/Breast: Reports system reviewed and no additional complaints, except as documented Neurologic Neurologic: Denies headache(s), Denies numbness and Denies tingling Psychiatric Psychiatric: Reports system reviewed and no additional complaints, except as documented Endocrine Endocrine: Reports fatigue Hematologic/Lymphatic On Anticoagulants: No Allergic/Immunologic Allergic/Immunologic: Reports system reviewed and no additional complaints, except as documented Patient History Medical History (Updated 11/09/20 @ 13:22 by Anderson Nolasco DO) Anxiety Arthritis Back pain Compartment syndrome (~2012) Dizziness Fatty liver GERD (gastroesophageal reflux disease) Gout (~1989) HLD (hyperlipidemia) Kidney stones Neck pain Numbness Numbness and tingling in left arm CINDI on CPAP Pneumonia RBBB (right bundle branch block) RLS (restless legs syndrome) Surgical History Hx of arthroscopy of left knee Hx of elbow surgery Hx of right inguinal hernia repair Hx of tonsillectomy Hx of umbilical hernia repair Status post left unicompartmental knee replacement (~2012) Social History household members: family Smoking Status: Former smoker alcohol intake: current Smoking Status: Former smoker alcohol intake frequency: holidays/special occasions only Substance Use Type: marijuana Exam Initial Vital Signs Initial Vital Signs: Vital Signs Temperature 98.2 F 11/09/20 11:57 Pulse Rate 69 11/09/20 11:57 Respiratory Rate 14 11/09/20 11:57 Blood Pressure 167/93 H 11/09/20 11:57 Pulse Oximetry 98 11/09/20 11:57 Const General: cooperative and comfortable HENMT Head: normal to inspection, normocephalic and atraumatic Nose: external nose normal Face and sinus: normal facial exam Mouth: oral mucosae normal Eyes General: appearance normal, both eyes and all related structures Pupils: PERRL EOM: EOM intact bilaterally Chest Chest: normal inspection of the chest Resp Effort & Inspection: normal respiratory effort Auscultation: clear to auscultation bilaterally Cardio Rate: regular rate Rhythm: regular rhythm GI Inspection: normal to inspection Palpation: soft and No tender Skin General: no rashes or lesions noted Neuro General: patient alert, patient awake, patient oriented x3 and moves all extremities Cognition: normal cognition Speech: other (Slow to speak however not slurring words) Sensory Exam: no sensory deficits noted Extrem General: normal to inspection and capillary refill normal Psych Appearance: grossly normal and well kempt Scores GCS [place] coma scale eye opening: Spontaneous [place] coma scale verbal response: Orientated Carlos coma scale motor response: Obey commands [place] coma scale total score: 15 NIH Stroke Scale Level of Conciousness: Alert, keenly responsive Ask month/age: Answers both questions correctly. Open/close eyes, close hand: Performs both tasks correctly Best gaze horizontal: Normal Visual evans: No visual loss Facial palsy: Normal symetrical movement Left arm drift: No drift for full 10 sec Right arm drift: No drift for full 10 sec Left leg drift: Drifts down, not to bed Right leg drift: No drift for full 5 sec Limb ataxia: Present in two limbs Sensory on face/arms/legs: Normal, no sensory loss Best language: No aphasia, normal Dysarthria: Normal Extinction or inattention: No abnormality Total NIH Stroke scale score: 3 Course Orders Ordered: ED Orders 11/09/20 12:04 COVID19 - ADMIT ([employer] swab/PCR) Stat Complete Blood Count AUTO DIFF Stat Comprehensive Metabolic Panel Stat Ethanol (ETOH) Stat Partial Thromboplastin Time Stat Prothrombin Time INR Stat Troponin & CK Cardiac Panel Stat 11/09/20 12:08 XR chest 1V Stat Urine Drug Screen, Rapid Stat 11/09/20 12:09 CT head/brain wo con Stat 11/09/20 12:10 EKG-12 Lead Stat Discontinued Medications Aspirin (Aspirin 81 Mg Chew Tab) 324 mg PO NOW ONE Stop: 11/09/20 13:22 Last Admin: 11/09/20 13:32 Dose: 324 mg Documented by: HERMAN Vital Signs Vital signs: Vital Signs - 8 hr 11/09/20 11:57 11/09/20 12:01 11/09/20 12:03 Temperature 98.2 F Pulse Rate 69 71 71 Respiratory Rate 14 14 Blood Pressure 167/93 H 167/93 H Pulse Oximetry 98 98 98 11/09/20 12:25 11/09/20 12:30 11/09/20 13:00 Temperature Pulse Rate 68 72 64 Respiratory Rate Blood Pressure 165/96 H 156/87 H 161/94 H Pulse Oximetry 97 97 94 11/09/20 13:30 Temperature Pulse Rate 73 Respiratory Rate Blood Pressure 170/87 H Pulse Oximetry 96 MDM - Neuro Symptoms/Deficit Lab Data Attestation: I reviewed the patient's lab results. Result diagrams: 11/09/20 12:04 11/09/20 12:04 Labs: Lab Results 11/09/20 11/09/20 11/09/20 Range/Units 12:04 12:04 12:04 WBC 5.9 (4.5-11.0) X10^3/uL RBC 5.60 (4.5-5.9) X10^6/uL Hgb 17.8 H (13.5-17.5) g/dL Hct 53.3 H (41-53) % MCV 95.2 (80-100) fL MCH 31.8 (26-34) PG MCHC 33.4 (30-36) % RDW 13.7 (11.6-14.8) % Plt Count 248 (150-400) X10^3/uL Neut % (Auto) 57.0 (50-75) % Lymph % (Auto) 29.5 (25-40) % [place] % (Auto) 9.5 (3-14) % Eos % (Auto) 3.0 (2-4) % Baso % (Auto) 1.0 (0-2) % Neut # (Auto) 3400 (7116-0244) /uL Lymph # (Auto) 1800 (4373-7726) /uL [place] # (Auto) 600 (0-900) /uL Eos # (Auto) 200 (0-450) /uL Baso # (Auto) 100 (0-100) /uL PT 11.1 (10.1-12.7) SECONDS INR 1.0 (0.9-1.3) APTT 32 (26.4-36.2) SECONDS Sodium 139 (137-145) mmol/L Potassium 4.4 (3.4-5.1) mmol/L Chloride 104 (98-107) mmol/L Carbon Dioxide 28 (22-32) mmol/L BUN 7 L (9-20) mg/dL Creatinine 0.90 (0.66-1.25) mg/dL Estimated GFR > 60.0 (>60) mL/min BUN/Creatinine Ratio 7.8 (6-22) Glucose 105 (80-110) mg/dL Calcium 9.7 (8.4-10.2) mg/dL Total Bilirubin 0.8 (0.2-1.3) mg/dL AST 38 (17-59) IU/L ALT 46 (<50) IU/L Alkaline Phosphatase 54 (38-126) U/L Total Creatine Kinase 63 (55-170) U/L CK-MB (CK-2) TNP CK-MB (CK-2) Rel Index TNP Troponin I < 0.012 (0.01-0.034) ng/mL Total Protein 7.3 (6.3-8.2) g/dL Albumin 4.3 (3.5-5.0) g/dL Globulin 3.0 (1.7-4.1) g/dL Albumin/Globulin Ratio 1.4 (1.0-2.8) Ethyl Alcohol ( - 10) mg/dL 11/09/20 Range/Units 12:04 WBC (4.5-11.0) X10^3/uL RBC (4.5-5.9) X10^6/uL Hgb (13.5-17.5) g/dL Hct (41-53) % MCV (80-100) fL MCH (26-34) PG MCHC (30-36) % RDW (11.6-14.8) % Plt Count (150-400) X10^3/uL Neut % (Auto) (50-75) % Lymph % (Auto) (25-40) % [place] % (Auto) (3-14) % Eos % (Auto) (2-4) % Baso % (Auto) (0-2) % Neut # (Auto) (1241-8417) /uL Lymph # (Auto) (4178-6620) /uL [place] # (Auto) (0-900) /uL Eos # (Auto) (0-450) /uL Baso # (Auto) (0-100) /uL PT (10.1-12.7) SECONDS INR (0.9-1.3) APTT (26.4-36.2) SECONDS Sodium (137-145) mmol/L Potassium (3.4-5.1) mmol/L Chloride (98-107) mmol/L Carbon Dioxide (22-32) mmol/L BUN (9-20) mg/dL Creatinine (0.66-1.25) mg/dL Estimated GFR (>60) mL/min BUN/Creatinine Ratio (6-22) Glucose (80-110) mg/dL Calcium (8.4-10.2) mg/dL Total Bilirubin (0.2-1.3) mg/dL AST (17-59) IU/L ALT (<50) IU/L Alkaline Phosphatase (38-126) U/L Total Creatine Kinase (55-170) U/L CK-MB (CK-2) CK-MB (CK-2) Rel Index Troponin I (0.01-0.034) ng/mL Total Protein (6.3-8.2) g/dL Albumin (3.5-5.0) g/dL Globulin (1.7-4.1) g/dL Albumin/Globulin Ratio (1.0-2.8) Ethyl Alcohol < 10 ( - 10) mg/dL Point of Care Testing Glucose POC [address] scan - head: Radiologist's Impression: [address] [id number] Scan ReportSigned Patient: Irene Parra PMR#: [id number]: 6Acct:[id number]/Sex: 65 / MDate of Service: 11/09/20Loc: EDAccession Number: [id number] Procedure: CT head/brain wo con Ordering Provider: Anderson Nolasco D.O. PROCEDURE: CT HEAD/BRAIN WO CON INDICATIONS: neuro changes/difficulty speaking TECHNIQUE: Noncontrast 4.5 mm thick angled axial sections acquired from the foramen magnum to the vertex, with coronal and sagittal reformats. For radiation dose reduction, the following was used: automated exposure control, adjustment of mA and/or kV according to patient size. COMPARISON: [facility], CT, HEAD WITHOUT CONTRAST, 10/12/2010, 9:09. [facility], CR, XR CHEST 1V, 11/09/2020, 12:13. FINDINGS: Image quality: Mild streak artifact can be seen through the skull base. CSF spaces: Basal cisterns are patent. No extra-axial fluid collections. The ventricles are symmetric in size and shape. Brain: No intracranial bleeds or masses. There is cerebral volume loss for age, with resultant ventricular and sulcal prominence. There are periventricular and deep white matter chronic small vessel ischemic changes. There is intracranial internal carotid artery atherosclerosis. Skull and face: Calvarium and visualized facial bones appear intact, without suspicious lesions. Sinuses: Visualized sinuses and mastoids are clear. IMPRESSION: No milo, acute intracranial abnormality is seen by noncontrast CT. No acute intracranial hemorrhage is seen. Note is made of age-appropriate brain parenchymal volume loss and chronic small vessel ischemic changes. If there is strong clinical suspicion for an acute stroke, please consider a br ain MRI for further evaluation, as it is more sensitive (assuming that there is no contraindication to MRI). Dictated by: Robert Saini M.D. on 11/09/2020 at 11:36 Approved by: Robert Saini M.D. on 11/09/2020 at 11:38 Chest x-ray: Radiologist's Impression: [address] [id number] ReportSigned Patient: Irene Parra PMR#: [id number]: 6Acct:[id number]/Sex: 65 / MDate of Service: 11/09/20Loc: EDAccession Number: [id number] Procedure: XR chest 1V Ordering Provider: Anderson Nolasco D.O. PROCEDURE: XR CHEST 1V INDICATIONS: Possible stroke TECHNIQUE: One view of the chest was acquired. COMPARISON: [facility], CT, THORAX WITHOUT CONTRAST, 03/16/2015, 11:17. [facility], CR, CHEST 2 VIEW, 11/06/2010, 11:04. [facility], CR, CHEST 2 VIEW, 10/24/2010, 9:10. FINDINGS: Surgical changes and devices: ACDF. Lungs and pleura: Lungs are clear. No pleural effusions or pneumothorax. Mediastinum: Mediastinal contours appear normal. Heart size appears prominent. Bones and chest wall: No suspicious bony lesions. Overlying soft tissues appear unremarkable. IMPRESSION: No acute cardiopulmonary abnormality. Heart size appears prominent. Dictated by: Tu Garcia M.D. on 11/09/2020 at 12:54 Approved by: Tu Garcia M.D. on 11/09/2020 at 12:55 ECG Data Attestation: I personally reviewed and interpreted this ECG as follows: Interpretation: Sinus rhythm Normal axis Ventricular rate is 66 First degree AV block OH interval 216 millisecond Normal QRS Normal QTC No ST T wave changes MDM Narrative Medical decision making narrative: Patient did arrive hypertensive but by report it was lower than what it was when EMS arrived. He does have a NIH score 3. His friend is at bedside and stated that last evening the patient sounded like what he does now. He also states that on Friday he was talking with his daughter who thought that he was speaking abnormal. Did not a candidate for tPA given the fact that we are unsure exactly when the symptoms started. I do have some concern about is CVA given his presentation. His head CT is unremarkable. Will hold on giving any antihypertensive medication for now. No signs of i nfection. Discussed the case with Dr. lew. Will admit for further evaluation and treatment. Discussed this with the patient. He expressed understanding and agreement Discharge Plan Departure Patient Disposition: Admitted as Observation Clinical Impression: Cerebrovascular accident, Hypertension
[2020-11-09 13:10] LABS: Add Manual Diff / Slide Review NO; Basophils Absolute Auto 100 /uL (0-100); Eosinophils Absolute Auto 200 /uL (0-450); Hematocrit 53.3 % (41-53); Hemoglobin 17.8 g/dL (13.5-17.5); Lymphocytes Absolute Auto 1800 /uL (1100-4500); Lymphocytes Percent Auto 29.5 % (25-40); Mean Corpuscular HGB Conc 33.4 % (30-36); Mean Corpuscular Hemoglobin 31.8 PG (26-34); Mean Corpuscular Volume 95.2 fL (80-100); Monocytes Absolute Auto 600 /uL (0-900); Monocytes Percent Auto 9.5 % (3-14); Neutrophils Absolute Auto 3400 /uL (1500-7000); Platelet Count 248 X10^3/uL (150-400); Prothrombin Time 11.1 SECONDS (10.1-12.7); Red Cell Distribution Width 13.7 % (11.6-14.8); White Blood Cell Count 5.9 X10^3/uL (4.5-11.0)
[2020-11-09 13:13] LABS: PTT Partial Thromboplastin Tim 32 SECONDS (26.4-36.2)
[2020-11-09 13:15] LABS: Ethanol (ETOH) < 10 mg/dL
[2020-11-09 13:24] LABS: Alanine Aminotransferase 46 IU/L (<50); Albumin 4.3 g/dL (3.5-5.0); Albumin Globulin Ratio 1.4 (1.0-2.8); Alkaline Phosphatase 54 U/L (38-126); Aspartate Aminotransferase 38 IU/L (17-59); BUN Creatinine Ratio 7.8 (6-22); Bilirubin Total 0.8 mg/dL (0.2-1.3); Blood Urea Nitrogen 7 mg/dL (9-20); Calcium 9.7 mg/dL (8.4-10.2); Carbon Dioxide 28 mmol/L (22-32); Chloride 104 mmol/L (98-107); Creatine Kinase 63 U/L (55-170); Estimated Glomerular Filt Rate > 60.0 mL/min (>60); Glucose 105 mg/dL (80-110); HEMOLYSIS 22 (0-50); Potassium 4.4 mmol/L (3.4-5.1); Sodium 139 mmol/L (137-145); Total Protein 7.3 g/dL (6.3-8.2)
[2020-11-09 13:26] LABS: Troponin I < 0.012 ng/mL (0.01-0.034)
[2020-11-09] MEDS: ASPIRIN 81 MG CHEW TAB 324 MG PO (13:32)
[2020-11-09 13:57] LABS: Ur Creatinine Normal (Normal)
[2020-11-09 13:58] LABS: UR Morphine/Opiate cutoff 300 Negative (Negative); Ur Specific Gravity Normal (Normal); Urine Amphetamines Negative (Negative); Urine Barbiturates Negative (Negative); Urine Benzodiazepines Positive (Negative); Urine Cocaine Negative (Negative); Urine MDMA Negative (Negative); Urine Methadone Negative (Negative); Urine Methamphetamines Negative (Negative); Urine Oxycodone Negative (Negative); Urine Phencyclidine Negative (Negative); Urine Tetrahydrocannabinol Positive (Negative); Urine Tricyclic Antidepressant Negative (Negative); Urine pH Normal (Normal)
[2020-11-09 15:10] LABS: COVID19 - ADMIT (NP swab/PCR) Negative (Negative)
--- NOTE | 2020-11-09 16:55 | DI.MRI.S_ITS ---
PROCEDURE: MR STROKE INDICATIONS: r/o CVA TECHNIQUE: Brain: Noncontrast axial T1 spin echo, axial T2 fast spin echo, sagittal and axial FLAIR, coronal T2 fast spin echo, axial gradient echo, axial diffusion and ADC through the brain. MR angiogram: Noncontrast axial 3D [id number] MR angiogram, with maximum intensity projection reformats of the internal carotid arteries and posterior circulation then performed. 20 cc ProHance. COMPARISON: [facility], CT, CT HEAD/BRAIN WO CON, 11/09/2020, 12:15. FINDINGS: Image quality: Good. BRAIN: CSF Spaces: Basal cisterns are patent. No extra-axial fluid collections. Ventricles are normal in size and shape. Brain: No midline shift. No intracranial bleeds or mass effects. The brainstem appears normal. Friedman/white matter interface appears normal. Diffusion-weighted images demonstrate no acute ischemic insult. No chronic ischemic insults. Normal intravascular flow voids are present. Skull and face: Calvarium has normal marrow signal. Orbits appear normal. Sinuses: Sinuses and mastoids are clear. BRAIN MR ANGIOGRAM: Anterior circulation: Intracranial internal carotid arteries demonstrate normal size and intraluminal flow signal. The flow within the paired anterior cerebral arteries is normal and symmetric. The flow within the middle cerebral arteries is normal and symmetric. The anterior communicating artery is seen. No stenoses, occlusions, or aneurysms. Posterior circulation: The visualized vertebral arteries demonstrate normal caliber, and join to form a normal appearing basilar artery. The flow within the posterior cerebral arteries is normal and symmetric. Note is made of normal appearing posterior cerebral arteries. No stenoses, occlusions, or aneurysms. IMPRESSION: 1. No acute infarct. 2. Large vessel occlusion. No critical stenosis. Dictated by: Tu Garcia M.D. on 11/09/2020 at 19:00 Approved by: Tu Garcia M.D. on 11/09/2020 at 19:07
--- NOTE | 2020-11-09 16:58 | DI.ECHO.S_ITS ---
[place] [facility]---------+ [facility] +---------+ : : [address] : : : : [id number] : : : : Phone: [phone] Echocardiogram Report + + :Name: MELVINA MCCRARY Study Date: 11/10/2020 Height: 73 in : :[facility] ReadingLocation: Weight: 280 lb : : Gender: Male BSA: 2.5 m2 : :: 1955 Age: 65 yrs BP: 150/95 mmHg: :Reason For Study: STROKE : :Ordering Physician: DANILO, : :ELLIS Performed By: Christian Youssef : :Referring: ELLIS CARRASCO : + + Interpretation Summary Normal sinus rhythm. Normal LV size; mild-moderate concentric LVH; normal wall motion and LV systolic function. EF is 55-60%. Stage II diastolic dysfunction. Mild LA enlargement. No significant valvular abnormalities. no PFO present; no source of embolism found. Procedure: A two-dimensional transthoracic echocardiogram with color flow and Doppler was performed. The study quality was technically adequate. Comparison is made with the echocardiogram of 02/16/2020. Left Ventricle: The left ventricle is normal in size. There is mild-moderate concentric left ventricular hypertrophy. Left ventricular systolic function is normal. The ejection fraction is estimated to be 55-60%. There are no focal wall motion abnormalities. Diastolic parameters suggest a pseudonormalization pattern, consistent with probable elevated filling pressures. Right Ventricle: The right ventricle is normal in size and function. Atria: The left atrium is mildly dilated. There is no Doppler evidence for an interatrial shunt. Injection of contrast documented no interatrial shunt. Mitral Valve: The mitral valve is normal in structure and function. There is trace mitral regurgitation. Aortic Valve: The aortic valve is normal in structure and function. No aortic regurgitation is present. Tricuspid Valve: The tricuspid valve is normal in structure and function. There is a trace or physiologic amount of tricuspid regurgitation. Pulmonary artery pressures cannot be estimated because of the lack of a measurable TR jet velocity but the IVC suggests a CVP of around 8 mmHg. Pulmonic Valve: The pulmonic valve is normal in structure and function. There is no pulmonic valvular regurgitation. Great Vessels: The aortic root is normal size. The ascending aorta is moderately enlarged. The IVC is dilated (diameter is greater than 2.1 cm) yet it collapses greater than 50% with a sniff. This suggests a right atrial pressure of 8 mm Hg. Pericardium/ Pleura There is no pericardial effusion. There is no pleural effusion. MMode/2D Measurements & Calculations LVIDd: 5.0 cm LVOT diam: 2.2 cm LVIDs: 3.5 cm Ao root diam: 3.8 cm FS: 30.4 % asc Aorta Diam: 4.1 cm IVSd: 1.4 cm LVPWd: 1.3 cm LV fernandes. diameter/BSA (cm/m^2): 2.0 LV sys. diameter/BSA (cm/m^2): 1.4 LA A2 area: 24.6 cm2 RA long axis: 6.0 cm LA A4 area: 23.2 cm2 RA area: 18.6 cm2 LA length (vol): 6.5 cm RA vol: 48.8 ml LA vol: 74.7 ml RA : 19.7 ml/m2 LA vol index: 30.1 ml/m2 IVC diam: 2.5 cm TAPSE: 2.6 cm Doppler Measurements & Calculations Ao V2 max: 152.8 cm/sec LVOT Max Nicolas: 149.1 cm/sec Ao V2 mean: 106.9 cm/sec LV V1 max P.9 mmHg Ao max P.3 mmHg LV V1 VTI: 28.0 cm Ao mean P.1 mmHg MONTY(I,D): 3.6 cm2 Ao V2 VTI: 28.5 cm MONTY(V,D): 3.6 cm2 sev ratio: 0.98 MONTY indexed to BSA (cm^2/m^2): 1.5 MV E max nicolas: 91.6 cm/sec PA pr(Accel): 46.5 mmHg MV A max nicolas: 86.3 cm/sec MV E/A: 1.1 Med Peak E' Nicolas: 4.7 cm/sec E/E' med: 19.3 Lat Peak E' Nicolas: 7.5 cm/sec E/E' lat: 12.2 E/e' average: 15.8 MV dec time: 0.21 sec SV(LVOT): 103.8 ml Electronically signed by: Rosalind Teague M.D. on Reading Physician:11/10/2020 05:05 PM
--- NOTE | 2020-11-09 17:06 | P.HP_ITS ---
History of Present Illness History of Present Illness Chief complaint: BP 190/something, Groggy Narrative: The patient is a 65-year-old male with a history of arthritis, chronic back pain, GERD, hyperlipidemia, obstructive sleep apnea, obesity who presents to the hospital for speech abnormalities. Patient states that a few days ago he noticed his speech was abnormal. His girlfriend today noted his speech was slower than usual. The patient has chronic left lower extremity weakness due to his back. He has felt completely fatigued. He also reports some double vision. He has had no facial droop, drooling, or unilateral weakness except for the left lower extremity. He denies any numbness tingling. No headache clear ear it he is chronically short of breath. Patient has chronic back pain, and also reports being chronically short of breath. Patient was seen and evaluated in the emergency room. Head CT was obtained which was negative. He is admitted to the hospital for probable acute CVA. Patient History Medical History Anxiety Arthritis Back pain Compartment syndrome (~2012) Dizziness Fatty liver GERD (gastroesophageal reflux disease) Gout (~1989) HLD (hyperlipidemia) Kidney stones Neck pain Numbness Numbness and tingling in left arm CINDI on CPAP Pneumonia RBBB (right bundle branch block) RLS (restless legs syndrome) Surgical History Hx of arthroscopy of left knee Hx of elbow surgery Hx of right inguinal hernia repair Hx of tonsillectomy Hx of umbilical hernia repair Status post left unicompartmental knee replacement (~2012) Family & Social History Family History (Updated 11/09/20 @ 17:09 by Leanne Sousa MD) Mother Alive and well Father Natural with unknown cause Social History: household members none Prior Living Arrangements House Safety & Behavioral: Feels Safe in Current Yes Environment Been Physically Hurt or No Threatened By a Person Tobacco & Substance use: Tobacco type cigarettes Smoking Status Former smoker alcohol intake current alcohol intake frequency holiday/special occasion Substance Use Type marijuana Meds Home Medications and Allergies Home Medications Medication Instructions Recorded Confirmed Type pramipexole 0.25 mg tablet 1 mg PO BID #0 10/12/10 11/09/20 History (Mirapex) gabapentin 300 mg capsule 900 mg PO BID 11/12/18 11/09/20 History meclizine 25 mg tablet 25 mg PO DAILY PRN 11/12/18 11/09/20 History testosterone (Fortesta) 5 pump TRANSDERMAL QAM 11/12/18 11/09/20 History Allergies Allergy/AdvReac Type Severity Reaction Status Date / Time triazolam [From Halcion] AdvReac Severe Violent, Verified 11/09/20 12:03 aggitated zolpidem [From Ambien] AdvReac Severe Made me do Verified 11/09/20 12:03 crazy things Review of Systems Review of Systems Narrative: 10 point review of systems is negative as above Constitutional Comments: Pleasant male who appears his stated age, who appears somewhat ill, is flushed Eyes Comments: Sclerae anicteric, extraocular muscles are intact, mild conjunctiva injection ENT Comments: Oropharynx is clear, there are moist mucous membranes, neck is supple, there is no adenopathy, or thyromegaly Cardiovascular Comments: Regular rate and rhythm, normal S1-S2, 2/6 systolic ejection murmur Respiratory Comments: Lungs: Decreased breath sounds, but clear to auscultation Gastrointestinal Comments: Abdomen: Soft nontender nondistended Musculoskeletal Comments: Scars on the left lower extremity, no edema, no ecchymosis Neurologic Comments: Patient gets a NIH score of 1-2 based on dysarthria, he has no focal weakness, Psychiatric Comments: Patient is awake and alert, no hallucinations, no delusions Exam Vital Signs (past 8 hours): - 11/09/20 11:57 11/09/20 12:01 11/09/20 12:03 Temperature 98.2 F Pulse Rate 69 71 71 Respiratory Rate 14 14 Blood Pressure 167/93 H 167/93 H Pulse Oximetry 98 98 98 11/09/20 12:25 11/09/20 12:30 11/09/20 13:00 Temperature Pulse Rate 68 72 64 Respiratory Rate Blood Pressure 165/96 H 156/87 H 161/94 H Pulse Oximetry 97 97 94 11/09/20 13:30 11/09/20 16:26 Temperature Pulse Rate 73 80 Respiratory Rate 16 Blood Pressure 170/87 H 153/99 H Pulse Oximetry 96 Oxygen Delivery Method Room Air Objective Labs Result Diagrams: 11/09/20 12:04 11/09/20 12:04 Labs: Laboratory Results - last 24 hr 11/09/20 11/09/20 11/09/20 12:04 12:04 12:04 WBC 5.9 RBC 5.60 Hgb 17.8 H Hct 53.3 H MCV 95.2 MCH 31.8 MCHC 33.4 RDW 13.7 Plt Count 248 Neut % (Auto) 57.0 Lymph % (Auto) 29.5 [place] % (Auto) 9.5 Eos % (Auto) 3.0 Baso % (Auto) 1.0 Neut # (Auto) 3400 Lymph # (Auto) 1800 [place] # (Auto) 600 Eos # (Auto) 200 Baso # (Auto) 100 PT 11.1 INR 1.0 APTT 32 Sodium 139 Potassium 4.4 Chloride 104 Carbon Dioxide 28 BUN 7 L Creatinine 0.90 Estimated GFR > 60.0 BUN/Creatinine Ratio 7.8 Glucose 105 Calcium 9.7 Total Bilirubin 0.8 AST 38 ALT 46 Alkaline Phosphatase 54 Total Creatine Kinase 63 CK-MB (CK-2) TNP CK-MB (CK-2) Rel Index TNP Troponin I < 0.012 Total Protein 7.3 Albumin 4.3 Globulin 3.0 Albumin/Globulin Ratio 1.4 U Opiates 300ng/mL cut Ur Oxycodone Screen Urine Methadone Screen Ur Barbiturates Screen U Tricyclic Antidepress Ur Phencyclidine Scrn Ur Amphetamines Screen U Methamphetamines Scrn Ur MDMA Scrn (Ecstasy) U Benzodiazepines Scrn Urine Cocaine Screen U Marijuana (THC) Screen Ethyl Alcohol SARS-CoV-2 (PCR) 11/09/20 11/09/20 11/09/20 12:04 12:04 13:42 WBC RBC Hgb Hct MCV MCH MCHC RDW Plt Count Neut % (Auto) Lymph % (Auto) [place] % (Auto) Eos % (Auto) Baso % (Auto) Neut # (Auto) Lymph # (Auto) [place] # (Auto) Eos # (Auto) Baso # (Auto) PT INR APTT Sodium Potassium Chloride Carbon Dioxide BUN Creatinine Estimated GFR BUN/Creatinine Ratio Glucose Calcium Total Bilirubin AST ALT Alkaline Phosphatase Total Creatine Kinase CK-MB (CK-2) CK-MB (CK-2) Rel Index Troponin I Total Protein Albumin Globulin Albumin/Globulin Ratio U Opiates 300ng/mL cut Negative Ur Oxycodone Screen Negative Urine Methadone Screen Negative Ur Barbiturates Screen Negative U Tricyclic Antidepress Negative Ur Phencyclidine Scrn Negative Ur Amphetamines Screen Negative U Methamphetamines Scrn Negative Ur MDMA Scrn (Ecstasy) Negative U Benzodiazepines Scrn Positive H Urine Cocaine Screen Negative U Marijuana (THC) Screen Positive H Ethyl Alcohol < 10 SARS-CoV-2 (PCR) Negative Assessment & Plan Assessment & Plan narrative: 65-year-old male admitted to the hospital with speech abnormalities, strongly suggestive of a recent CVA -patient has risk factors to include hypertension, although currently untreated -head CT in the emergency department revealed no milo, acute intracranial abnormality seen on noncontrast head CT -patient was hypertensive in the emergency -no focal weakness on exam -will rule out CVA, patient will be started on aspirin and Plavix, will obtain MRI of the brain tomorrow, and cardiac echo to rule out embolic focus -will obtain PT OT and speech consultation Hypertension -given a subacute infarct will allow for permissive hypertension -patient previously on ZAHRAA-inhibitor/ARB, if blood pressure remains elevated will resume Hyperlipidemia -will check lipids, start a statin given his probable CVA Chronic back pain -will continue usual home medication Restless leg syndrome -continue Neurontin and Mirapex Obstructive sleep apnea -will continue CPAP DVT prophylaxis will be started. I have utilized all available resources to review update and obtain current medication Patient reports he is a full code will note that his record accordingly He reports his daughter will be his surrogate decision maker Patient is admitted under observation given his clinical presentation
[2020-11-09] MEDS: HYDROCODONE/ACET 5/325 TABLET 1 TAB PO (19:08)
[2020-11-09] MEDS: LACTATED RINGERS 1,000 ML 100 ML IV (19:12)
[2020-11-09] MEDS: PRAMIPEXOLE 1 MG TABLET PO (19:31)
[2020-11-09] MEDS: GABAPENTIN 600 MG TABLET PO (19:31)
[2020-11-09] MEDS: ATORVASTATIN 20 MG TABLET 80 MG PO (20:02)
[2020-11-09] MEDS: HYDROCODONE/ACET 10/325 TABLET 2 TAB PO (20:02)
[2020-11-09 20:06] LABS: Hemoglobin A1C% w Est Avg Glu 5.4 % (4.0-6.0)
[2020-11-09 20:23] LABS: Thyroid Stimulating Hormone 0.996 uIU/mL (0.47-4.68)
[2020-11-10 04:07] VITALS: BP 146/88; PULSE 73; RESP 16; TEMP 36.4
[2020-11-10] MEDS: LACTATED RINGERS 1,000 ML 100 ML IV (05:40)
[2020-11-10 06:35] LABS: Cholesterol 193 mg/dL (140-199)
[2020-11-10 06:47] LABS: Troponin I < 0.012 ng/mL (0.01-0.034)
[2020-11-10] MEDS: METHYLPHENIDATE 5 MG TABLET 10 MG PO ×2 (06:47→11:27)
[2020-11-10] MEDS: ACETAMINOPHEN 325 MG TABLET 650 MG PO (06:49)
--- NOTE | 2020-11-10 07:07 | PC.NURSE ---
C/O back, neck pain & SHAW. States I'm lying in bed too long, medicated with 650 mg. of PO Tylenol. Pt. sitting @ the edge of his bed, will monitor.
[2020-11-10 07:33] VITALS: BP 141/90; PULSE 66; RESP 18; O2SAT 97
[2020-11-10] MEDS: HYDROCODONE/ACET 10/325 TABLET 2 TAB PO (09:56)
[2020-11-10] MEDS: GABAPENTIN 600 MG TABLET PO (09:57)
[2020-11-10] MEDS: DOCUSATE 100 MG CAPSULE PO (09:57)
[2020-11-10] MEDS: PRAMIPEXOLE 1 MG TABLET PO (09:57)
[2020-11-10] MEDS: ASPIRIN EC 81 MG TABLET PO (09:57)
[2020-11-10] MEDS: CLOPIDOGREL 75 MG TABLET PO (09:57)
[2020-11-10] MEDS: ENOXAPARIN 40 MG/0.4 ML SYRINGE SUBCUT (09:58)
--- NOTE | 2020-11-10 11:06 | PT.IIE ---
Medical History (Last Reviewed 11/09/20 @ 17:08 by Leanne Sousa MD) Anxiety Arthritis Back pain Compartment syndrome (~2012) Dizziness Fatty liver GERD (gastroesophageal reflux disease) Gout (~1989) HLD (hyperlipidemia) Kidney stones Neck pain Numbness Numbness and tingling in left arm CINDI on CPAP Pneumonia RBBB (right bundle branch block) RLS (restless legs syndrome) Physical Therapy Inpatient Evaluation/Re-Eval M1 PT/OT-IP Prior Functional Status Start: 11/10/20 12:10 Freq: NEEDED Status: Active Protocol: Document 11/10/20 11:06 AB (Rec: 11/10/20 12:20 AB [id number]) Medical Review Prior Functional Status Medical History Reviewed Yes Communication able to make needs known Mobility and Gait pt stated that he is independent with all mobilities and ambulation without AD Social History Household Members none Living Arrangements House Number of Floors (Floors) One Floor Number of Stairs To Enter/Railing? 2 steps without rails but pt holds on to side wall of the house for support Home Environment Standard Height Toilet,Walk in Shower Home Equipment Shower Seat without Backrest, Hand Held Shower,Grab Bars In Shower M2 PT-IP Current Condition Start: 11/10/20 12:10 Freq: NEEDED Status: Active Protocol: Document 11/10/20 11:06 AB (Rec: 11/10/20 12:20 AB [id number]) Physical Therapy Current Condition Current Condition Evaluation Date 11/10/20 Treatment Diagnosis r/o CVA; difficulty in walking Onset Date 11/09/20 M3 PT-IP Subjective Start: 11/10/20 12:10 Freq: NEEDED Status: Active Protocol: Document 11/10/20 11:06 AB (Rec: 11/10/20 12:20 AB [email or web address]) Subjective Physical Therapy Visit Type Type Initial Evaluation Visit Start Time 11:06 Visit Stop Time 11:30 Total Visit Minutes 24 Number of PLASTIC DIE MAKER APPRENTICE Visits 0 Physical Therapy Visit Comments Patient Comments pt is agreeable to do PT Therapy Pain Assessment Pain When Pain Assessed At Rest Pain Present Pain Present Pain Reported Location lower back Intensity 3 Scale Used stated chronic LBP Description Chronic Pain Management Techniques Apply Cold,Distraction, Modification of Treatment,Re- positioning,Timing of Activity with Medications M4 PT-IP Mobility and Gait Start: 11/10/20 12:10 Freq: NEEDED Status: Active Protocol: Document 11/10/20 11:06 AB (Rec: 11/10/20 12:20 AB [email or web address]) PT-Bed Mobility Assessment Rolling Type of Rolling Log Rolling Level of Assist Standby Assistance Supine to Sit Supine to Sit Standby Assistance PT-Transfer Assessment Sit to and From Stand Sit to and from Stand Standby Assistance,Contact Guard Assistance Equipment Transfer Assistive Device None,Gait Belt Orthotic/Prosthetic Devices or Brace: No Transfers Transfer Destination Chair Transfer Technique ambulated Transfer Ability Level of Assist Standby Assistance,Contact Guard Assistance,1 Person Assistance,Use of Upper Extremities Comments Mobility Comments BP: 150/95. pt completed log roll supine to sit SBA. sat on EOB SBA. completed sit to stand SBA to CGA and ambulated in room without AD SBA to CGA . presents with antalgic gait and pt stated that that is due to his back pain and has a limp for a long time. pt completed up/down step stool holding on to R side wall for support SBA to CGA. completed x2 sets. pt agreed to sit on chair. positioned on chair. call light and table placed within reach. Gait Assessment Gait Gait Assistance Required: Standby Assistance,Contact Guard Assist Distance (Feet) 30 Able to Maintain Weight Bearing Status Yes During Gait Assistive Devices Assistive Device None,Gait Belt Orthotic/Prosthetic Devices or Brace: Yes Gait Deviations General Gait Pattern Antalgic,Decreased Stride Length,Decreased Feet Clearance Factors Limiting Gait Function Factors Limiting Gait Function Decreased Activity Tolerance, Decreased Strength,Limited Range of Motion,Pain,Poor Balance,Poor Safety Awareness Stair Climbing Assessment Evaluation Level of Assist On Stairs Standby Assistance,Contact Guard Assistance Devices Stair Climbing Assistive Devices Right Railing Technique/Endurance Stair Climbing Direction Ascend and Descend Stair Climbing Technique Step to Step Number of Steps Climbed 1 Query Text: Stair Climbing Set # Repetitions (reps) 2 PT-Balance Assessment Sitting Balance and Reactions Static Sitting Balance Ability Good Dynamic Sitting Balance Ability Good Standing Balance and Reactions Static Standing Balance Ability Good Dynamic Standing Balance Ability Fair Device Used without AD M5 PT-IP Objective Assessments Start: 11/10/20 12:10 Freq: NEEDED Status: Active Protocol: Document 11/10/20 11:06 AB (Rec: 11/10/20 12:20 AB [email or web address]) Orientation Orientation/Cognition Level of Alertness Alert Orientation Name Language Function Ability No Deficits Noted Safety Awareness Understands Safety Issues Memory Description No Deficits Noted Gross Range of Motion Lower Extremity ROM Assessment Within Functional Limits Strength Lower Extremity Strength Assessment Left Impaired Hip 3+/5 Knee 4-/5 Coordination Assessment Gross Coordination Gross Coordination WNL Muscle Tone Muscle Tone WNL Yes M6 PT-IP Treatment Start: 11/10/20 12:10 Freq: NEEDED Status: Active Protocol: Document 11/10/20 11:06 AB (Rec: 11/10/20 12:20 AB [email or web address]) Physical Therapy Treatment Education Education Provided Safety M7 PT-IP Assessment and Plan Start: 11/10/20 12:10 Freq: NEEDED Status: Active Protocol: Document 11/10/20 11:06 AB (Rec: 11/10/20 12:20 AB [email or web address]) PT Summary Assessment and Plan Potential Rehabilitation Potential Good Status of Condition at Evaluation Stable Summary Impairments Pain,ROM,Strength,Balance, Coordination,Sensation,Tone, Cognition,Bed Mobility, Transfers,Gait,Activity Tolerance Assessment Summary pt requiring SBA to CGA with mobility. pt has chronic LBP affecting standing balance/ tolerance and mobility. pt will likely progress with mobility during hospital stay. will continue to assess progress. Goals Bed Mobility Goal Independent Transfer Goal Independent Gait Goal Independent Gait Distance 300 Other Goals up/down 2 steps R side wall mod I Days to Meet Goals 5 Frequency of Treatment Frequency Of Treatment Once a Day Treatment Plan Physical Therapy Treatment Plan Bed Mobility Training,Transfer Training,Gait Training, Therapeutic Exercise,Balance Retraining,Discharge Planning, Hot or Cold Pack,Neuromuscular Re-ed,Coordination Retraining Recommendations To Nursing Amount of Assist Needed 1 Person Assist Discharge Recommendations PT Discharge Recommendations Home with Assistance Transportation Needs at Discharge Private Vehicle
[2020-11-10 11:27] VITALS: BP 150/95; PULSE 67; RESP 17; TEMP 36.6; O2SAT 96
--- NOTE | 2020-11-10 13:44 | OT.IP.EVAL ---
Past Medical History (Last Reviewed 11/09/20 @ 17:08 by Leanne Sousa MD) Anxiety Arthritis Back pain Compartment syndrome (~2012) Dizziness Fatty liver GERD (gastroesophageal reflux disease) Gout (~1989) HLD (hyperlipidemia) Hx of arthroscopy of left knee Hx of elbow surgery Hx of right inguinal hernia repair Hx of tonsillectomy Hx of umbilical hernia repair Kidney stones Neck pain Numbness Numbness and tingling in left arm CINDI on CPAP Pneumonia RBBB (right bundle branch block) RLS (restless legs syndrome) Status post left unicompartmental knee replacement (~2012) Surgical History (Last Reviewed 11/09/20 @ 17:08 by Leanne Sousa MD) Hx of arthroscopy of left knee Hx of elbow surgery Hx of right inguinal hernia repair Hx of tonsillectomy Hx of umbilical hernia repair Status post left unicompartmental knee replacement (~2012) Occupational Therapy Inpatient Evaluation/Re-Eval M1 PT/OT-IP Prior Functional Status Start: 11/10/20 12:10 Freq: NEEDED Status: Active Protocol: Document 11/10/20 13:49 [facility] (Rec: 11/10/20 14:03 [facility] [id number]) Medical Review Prior Functional Status Medical History Reviewed Yes Communication able to make needs known Mobility and Gait pt stated that he is independent with all mobilities and ambulation without AD Activities of Daily Living and IADL's Completely independent with all ADl,IADL and driving. Social History Household Members none Living Arrangements House Number of Floors (Floors) One Floor Number of Stairs To Enter/Railing? 2 steps without rails but pt holds on to side wall of the house for support Home Environment Standard Height Toilet,Walk in Shower Home Equipment Shower Seat without Backrest, Hand Held Shower,Grab Bars In Shower Additional Social History Comment Pt states has a renter that is able to assist him if needed. M2 OT-IP Current Condition Start: 11/10/20 13:49 Freq: Status: Active Protocol: Document 11/10/20 13:49 [facility] (Rec: 11/10/20 14:03 [facility] [id number]) Occupational Therapy Current Condition Current Condition Evaluation Date 11/10/20 Treatment Diagnosis r/o CVA, chronic back and neck pain Diagnosis Onset Date 11/09/20 Post Operative Precautions Other Precautions Limit excessive bending, lifting , and twisting- per pt has had recent back sx in July of this year. M3 OT- IP Subjective and Pain Start: 11/10/20 13:49 Freq: Status: Active Protocol: Document 11/10/20 13:49 [facility] (Rec: 11/10/20 14:03 [facility] [id number]) OT- Subjective Occupational Therapy Visit Type Type Initial Evaluation Visit Start Time 13:26 Visit Stop Time 13:44 Total Visit Minutes 18 Occupational Therapy Visit Comments Patient Comments Pt agreed to do Ot eval. Patient/Caregiver Goals TO go home. OT Pain Assessment Pain When Pain Assessed At Rest Pain Present Pain Present Pain Reported Location lower back Intensity 5 Scale Used Numeric (0 - 10) M4 OT- IP ADL's Start: 11/10/20 13:49 Freq: Status: Active Protocol: Document 11/10/20 13:49 [facility] (Rec: 11/10/20 14:03 [facility] [id number]) OT GAV-Nwlc-Eyygorw General Evaluation Self-Feeding Ability Independent OT ADL-Grooming General Evaluation Grooming Ability Independent OT ADL-Oral Care General Eval Oral Care Ability Independent OT ADL-Dressing General Eval Lower Body Dressing Ability Independent Comments OT Dressing Comments Pt able to independently lucia/ socks while seated. Pt has leather novelty parts cutter and shoe horn to assist with needs at home. OT ADL-Toileting Comments OT Toileting Comments Pt not having to go. Pt able to show therapist able to reach behind him to wipe. Able to educate that wet wipes and toilet paper may increased his ease for hygiene needs. OT ADL-Bathing Comments OT Bathing Comments NOt performed. Pt has a stool in his shower and grab bars to use for safety. M5 OT- IP IADL's Start: 11/10/20 13:49 Freq: Status: Active Protocol: Document 11/10/20 13:49 [facility] (Rec: 11/10/20 14:03 [facility] [id number]) OT-Instrumental Activities of Daily Living Deficits IADL Deficits Identified No Deficits Home Safety Awareness Awareness of Need for Assistance at Home Good Awareness Ability to Problem Solve Emergency Able to Problem Solve Situations Home Safety Comments Pt states has high stools around the house that he can sit to if needed during IADL needs. Medication Management Medication Management No Deficits Identified Money Management Money Management No Deficits Identified Meal Preparation Meal Preparation No Deficits Identified Delivery Driver Delivery Driver No Deficits Identified M6 OT- IP Functional Cognition Start: 11/10/20 13:49 Freq: Status: Active Protocol: Document 11/10/20 13:49 [facility] (Rec: 11/10/20 14:03 [facility] [id number]) Cognitive Factors Limiting Selfcare Function Cognitive Ability Level of Alertness Alert Patient Orientation Name,Age,Birthday,Month,Date, Year,Day of Week,Place, Situation Attention Span Ability Capable of Focused Attention, Capable of Sustained Attention Ability to Follow Commands Able to Follow Multi-Step Commands Memory Description No Deficits Noted Safety Awareness No Deficits Noted Problem Solving Ability No deficits Noted Executive Function Ability No Deficits Noted Cognitive Comments Cognitive Assessment Comments Pt scored 58 seconds for [place] Making Part B which implies normal for visual attention, task switching, speed of processing, mental flexibility and executive functioning. Therefore pt's cognition appears intact with no deficits. OT- Vision and Hearing OT- Hearing Assessment OT- Hearing Assessment WFL OT- Vision Assessment Visual Acuity Glasses For Reading Vision Assessment Comments Pt states needing to sheepskin pickler his prescription glasses soon. M7 OT- IP Mobility and Balance Start: 11/10/20 13:49 Freq: Status: Active Protocol: Document 11/10/20 13:49 [facility] (Rec: 11/10/20 14:03 [facility] [id number]) OT-Transfer Assessment Sit to and From Stand Sit to and from Stand Independent Transfers Transfer Ability Independent Technique Transfer Destination Bed,Chair Devices Transfer Assistive Devices None Comments Mobility Comments Distant SBA for all mobility needs in the room with no device used. OT- Balance Assessment Sitting Balance and Reactions Static Sitting Balance Ability Normal Dynamic Sitting Balance Ability Normal Standing Balance and Reactions Static Standing Balance Ability Good M8 OT- IP Objective Assessments Start: 11/10/20 13:49 Freq: Status: Active Protocol: Document 11/10/20 13:49 [facility] (Rec: 11/10/20 14:03 [facility] [id number]) OT Gross Range of Motion Upper Extremity Range of Motion Assessment Within Functional Limits OT Strength Upper Extremity Strength Assessment Within Functional Limits OT- Coordination Assessment Upper Extremity Finger to Nose Test Within Functional Limits OT-Muscle Tone Assessment Muscle Tone WNL Yes OT Sensation Assessment Comments Summary Comments Intact light touch. M9 OT- IP Assessment and Plan Start: 11/10/20 13:49 Freq: Status: Active Protocol: Document 11/10/20 13:49 [facility] (Rec: 11/10/20 14:03 [facility] [id number]) OT Summary Assessment and Plan Potential Rehabilitation Potential Excellent Analytic Complexity at Evaluation Low Summary OT Impairments Pain Progress Towards Goals Safe For Discharge Assessment Summary Pt low complexity and here to r/o CVA and has chronic back and neck pain. Per OT eval pt is independent to be able to do all his ADl and IADl needs. Pt states has a renter who can assist him for any needs especially for heavy lifting. Pt to go home with assist as needed when medically stable. Per pt feels back to his baseline for all needs, except has chronic back and neck pain. Educated pt on proper body mechanics for ADl and IADl needs. Pt has good understanding for OT needs. Discharge pt for OT services. Treatment Plan OT Treatment Plan Patient/Family Education, Discharge Planning Discharge Recommendations OT Discharge Recommendations Home with Assistance Transportation Needs at Discharge Private Vehicle
--- NOTE | 2020-11-10 14:27 | CM.DANOTE ---
Patient is a 65 yo male who was admitted on 11/09/20 for Groggy/BP issues. Pt has MCR and LIFE and his PCP is Cindy Ram. EMR was reviewed. Per MD, pt with hx of arthritis and chronic pain and admitted for r/o of CVA vs TIA. MRI returned normal and Echo and stress test ordered for today. PT/OT/ST ordered and pending. Per PT, recommending home with assist as he ambulated fairly well and almost back to baseline. SW met bedside with pt and explained role and he confirms that he lives at home alone in [place] but used to have Dtr and grandkids living with him but they moved up to [facility] and now pt lives alone but has supportive local girlfriend. Pt is retired but active and had neck surgery in 2019 and was able to d/c home with family assist. Pt denies any DME needs at baseline and feels he is much better than when he was admitted. Pt denies any hx of HH or SNF and does not anticipate any SW needs at d/c and preference is home today if stable. Pt states he already has a friend waiting to provide transport once pt calls stating he gets to discharge. Plan: SW to follow for possible d/c home this evening via friend POV if medically stable and any further identified needs. SIDNEY Morrell Discharge Planning/Care Management CM Discharge Assessment Start: 11/10/20 14:24 Freq: Status: Active Protocol: Document 11/10/20 14:24 BF (Rec: 11/10/20 14:27 [id number]) Discharge Planning Assessment Assigned Sourcing Specialist SIDNEY Gamboa DPOA/Assigned Designee Name [facility] Information [phone] Advance Directives? Yes Advance Directives on File No History Provided By Patient,Medical Record Has Patient been admitted in last 30 No days? Prior Living Arrangements House Household Members none Type of transporation used prior to Drives own vehicle admit Independent with ADL's Yes Is patient alert and oriented? Yes Caregiver for Another No Patient/Family Preference OP PT Therapy Barriers to Discharge No Discharge Plan Home Community Services Physical Therapy,Speech Language Pathology Transportation Arrangement friend can transport at d/c, just waiting for a call Referrals Initiated None needed Whiteboard Updated in Patient Room with Yes name and ext. # of Sourcing Specialist Review Status In Process Please Provide Date Initial DC 11/10/20 Assessment Was Performed Next Review Type Continued Stay Review
--- NOTE | 2020-11-10 14:29 | ST.IPIE ---
Visit Care Team Role Provider Type Cindy Ram PA-C Primary Care Provider Non-Staff Specialty: Medical Address: [address] [place] [address], [id number] Email: Salvador Jesus DO Family Provider Non-Staff Specialty: Family Practice Address: [address] [place] [address], [phone] Email: Anderson Nolasco DO Emergency Provider Physician Referring Provider Specialty: Emergency Medicine Address: [address] [place] [address], [id number] Email: [email or web address] Leanne Sousa MD Admit Provider Physician Attending Provider Specialty: Internal Medicine Address: [address] [place] [address], [id number] Email: [email or web address] Past Medical History (Last Reviewed 11/09/20 @ 17:08 by Leanne Sousa MD) Anxiety (Medical) Arthritis (Medical) Back pain (Medical) Compartment syndrome (Medical ~2012) Left calf s/p uni knee Dizziness (Medical) r/t calcium build up in ear Fatty liver (Medical) GERD (gastroesophageal reflux disease) (Medical) Gout (Medical ~1989) HLD (hyperlipidemia) (Medical) Hx of arthroscopy of left knee (Medical) Hx of elbow surgery (Medical) Right, bursa removed Hx of right inguinal hernia repair (Medical) Hx of tonsillectomy (Medical) Hx of umbilical hernia repair (Medical) Kidney stones (Medical) Passed without surgery Neck pain (Medical) Numbness (Medical) LLE Numbness and tingling in left arm (Medical) Down into hand CINDI on CPAP (Medical) w/2L02 bled in Pneumonia (Medical) Multiple RBBB (right bundle branch block) (Medical) RLS (restless legs syndrome) (Medical) Status post left unicompartmental knee replacement (Medical ~2012) ST IP Initial Evaluation Report RETAIL PHARMACY TECHNICIAN Motor Speech Evaluation Start: 11/10/20 09:18 Freq: Status: Active Protocol: Document 08/13/21 10:53 ZS (Rec: 11/10/20 11:12 ZS [id number]) Motor Speech Evaluation Session Time Visit Start Time 09:00 Visit Stop Time 09:20 Total Visit Minutes 20 Setting Setting Acute Care Referral Reason for Referral Speech and swallowing eval following suspected CVA Mental Status Mental Status Alert,Responsive,Cooperative Subjective Observations Subjective Irene was reclined in bed but awake and alert when clinicians entered the room. He spoke slowly but clearly and responded to questions and requests appropriately. He elevated the bed so he was in an upright seated position when asked. Oral Motor Lips Function WFL Observation at rest Symmetrical, no weakness or droop noted. Tongue Function WFL Protrusion No deviation, reduced ability to elevate tongue tip noted. Jaw Function WFL Soft Palate Function WFL Respiration/Phonation Conversation Quality WFL Other Slow rate of speech Duration WFL Function WFL Loudness WFL Diadochokinetic Rates P^ Quality WFL T^ Quality WFL P^T^K^ Comments Single instance was WFL, repetitions were slow but accurate. Speech Intelligibility Awareness/Strategy Use Findings Details Motor Speech Function WFL Assessment Details Assessment Irene presented with clear, intelligible speech during today's assessment. His rate of speech was slow and he demonstrated difficulty elevating his tongue tip, however, the strength and ROM of his oral mechanism are within functional limits for the purposes of speech sound production. A swallow screening was completed, during which Irene swallowed thin liquids without overt signs/symptoms of aspiration. Additionally, Irene reports no difficulty with swallowing. Speech and swallowing therapy are not recommended at this time. Prognosis Rehabilitation Potential Good Recommendations Treatment Recommended No Therapy Recommendations Therapy is not recommended at this time as Irene does not present with any difficulty with feeding/swallowing or speech sounds. If Irene experiences a change in his ability or medical status, it is recommended he be re- evaluated. Patient/Family Education Education Described results of evaluation,Patient Understanding
--- NOTE | 2020-11-10 15:12 | PC.NURSE ---
Arrived on unit 1345. A&Ox4. VSS, elevated BP 150/95. Pain 9/10 low and upper back. Given o.5 mg IV dilaudid once, which was minimally effective. SCDs billateral feet. NS@ 100 into left hand. Arrived with cracked skin on feet that was bleeding. Cleaned feet and applied Vaseline and bandages to open skin. 2 L nasal cannula sating in the mid 90's when awake but de-sats to mid to low 80's when asleep; RT notified. at bedside. Call light within reach, bed low.
--- NOTE | 2020-11-10 16:55 | PC.NURSE ---
Discharge Note Patient A&O, VSS, RA, no complaints of chest pain or shortness of breath. Discharge packet reviewed with patient along with education on new prescriptions, all questions/concerns addressed. PIV/TELE discontinued. Dr Sousa to follow-up with patient when ECHO report available, patient agreeable. Patient reminded to lemon picker prescriptions from preferred pharmacy. All belongings packed and given to patient along with discharge packet. Patient taken down via wheelchair to POV.
--- NOTE | 2020-11-11 18:18 | PM.DS.1 ---
History of Present Illness History of Present Illness Chief complaint: BP 190/something, Groggy Narrative: The patient is a 65-year-old male with a history of arthritis, chronic back pain, GERD, hyperlipidemia, obstructive sleep apnea, obesity who presents to the hospital for speech abnormalities. Patient states that a few days ago he noticed his speech was abnormal. His girlfriend today noted his speech was slower than usual. The patient has chronic left lower extremity weakness due to his back. He has felt completely fatigued. He also reports some double vision. He has had no facial droop, drooling, or unilateral weakness except for the left lower extremity. He denies any numbness tingling. No headache clear ear it he is chronically short of breath. Patient has chronic back pain, and also reports being chronically short of breath. Patient was seen and evaluated in the emergency room. Head CT was obtained which was negative. He is admitted to the hospital for probable acute CVA. Discharge Providers Provider Date of admission: 11/09/20 15:25 Discharge Date: 11/10/20 Primary care physician: Cindy Ram PA-C Consults: 11/09/20 16:55 Consult to Discharge Planning Routine Comment: Consult to Occupational Therapy Evaluate & Treat Comment: Physician Instructions: Evaluate and treat Consult to Physical Therapy Evaluate & Treat Comment: Physician Instructions: Evaluate and Treat Consult to Speech Therapy Evaluate & Treat Comment: Physician Instructions: Evaluate and treat 11/09/20 19:22 Consult to Respiratory Therapy Evaluate & Treat Comment: CINDI, uses Cpap @ home Physician Instructions: Evaluate and treat Discharge provider: Leanne Sousa MD Summary Hospital Course Discharge Diagnosis: 1. Probable TIA 2. Obstructive sleep apnea 3. GERD 4. Chronic back pain 5. Restless leg syndrome Hospital Course: Patient was admitted to the hospital for evaluation of a probable TIA. He had complaints of speech abnormalities, the patient felt quite fatigued. His speech was noted to be quite slow which was unusual for him. He had no focal weakness, the hospital and evaluated. Patient underwent a brain MRI which showed no evidence of an acute infarct. The patient underwent cardiac echo. This revealed normal sinus rhythm, imyk-lq-lobntrfq concentric LVH, normal wall motion abnormality, ejection fraction 55-60%, there was stage II diastolic dysfunction, mild left atrial enlargement, no PFO was present. The patient was determined to have a probable TIA. He was discharged home on an aspirin. He in addition he was placed on high-dose statin. Patient will follow-up with his primary care provider for further evaluation next week. Patient was discharged home in satisfactory condition. Status at Discharge Cognitive/behavioral status at discharge: oriented Functional status at discharge: independent ambulation Exam Vital Signs (past 8 hours): Oxygen Delivery Method Room Air Oxygen Flow Rate 0 Narrative Exam Narrative: Pleasant male in no acute distress Resp Other: Lungs clear to auscultation Cardio Other: Cardiac exam regular rate rhythm normal S1-S2 GI Other: Abdo abdomen soft nontender nondistended Neuro Other: Neuro exam is nonfocal Extrem Other: No edema Objective Labs Result Diagrams: 11/09/20 12:04 11/09/20 12:04 [facility] Medical History Anxiety Arthritis Back pain Compartment syndrome (~2012) Dizziness Fatty liver GERD (gastroesophageal reflux disease) Gout (~1989) HLD (hyperlipidemia) Kidney stones Neck pain Numbness Numbness and tingling in left arm CINDI on CPAP Pneumonia RBBB (right bundle branch block) RLS (restless legs syndrome) Surgical History Hx of arthroscopy of left knee Hx of elbow surgery Hx of right inguinal hernia repair Hx of tonsillectomy Hx of umbilical hernia repair Status post left unicompartmental knee replacement (~2012) Family History (Updated 11/09/20 @ 17:09 by Leanne Sousa MD) Mother Alive and well Father Natural with unknown cause Social History household members: none Smoking Status: Former smoker alcohol intake: current Discharge Assessment & Plan Assessment and Plan Assessment: Probable TIA Plan of Treatment: Aspirin High-dose statin, Lipitor 80 mg daily Follow-up with PCP next week Discharge Plan Discharge Plan Patient Disposition: Home Discharge orders & Medications Prescriptions: New atorvastatin [Lipitor] 20 mg Tablet 80 mg PO BEDTIME Qty: 30 RF: 0 aspirin 81 mg Tablet,Delayed Release (Dr/Ec) 81 mg PO DAILY Qty: 30 RF: 0 Continued pramipexole [Mirapex] 0.25 MG tablet 1 mg PO BID Qty: 0 RF: 0 meclizine 25 mg Tablet 25 mg PO DAILY PRN (Reason: Dizziness) RF: 0 gabapentin 300 mg Capsule 900 mg PO BID RF: 0 testosterone [Fortesta] 10 mg/0.5 gram /actuation Gel In Metered-Dose Pump 5 pump TRANSDERMAL QAM RF: 0 Medication counseling provided by Pharmacist: No Follow up/Referrals: Cindy Ram PA-C [Primary Care Provider] - Discharge Health Status Multidrug resistant organism: No MDRO Diet/Activity/Treatments Diet: Low-sodium and Low-cholesterol Visit Report/Discharge Packet Instructions: Transient Ischemic Attack, Malignant Hypertension Discharge Data Primary Care Provider: Cindy Ram Attending Provider: Leanne Sousa
== END 2020-11-10 16:45 | disposition home or self-care (01) ==
LOC: ED 14:37 → AC 15:27
PROVIDERS: Nurse Practitioner Family; Admitting Provider Internal Medicine; Emergency Provider Emergency Medicine; Family Provider Family Medicine; PCP Physician Assistant; Referring Provider Emergency Medicine; Visit Provider Internal Medicine
DX: R29.818 Other symptoms and signs involving the nervous system (principal); R47.89 Other speech disturbances; R29.703 NIHSS score 3; I10 Essential (primary) hypertension; G25.81 Restless legs syndrome; K21.9 Gastro-esophageal reflux disease without esophagitis; E78.5 Hyperlipidemia, unspecified; G47.33 Obstructive sleep apnea (adult) (pediatric); M19.90 Unspecified osteoarthritis, unspecified site; G89.29 Other chronic pain; M54.9 Dorsalgia, unspecified; Z20.822 Contact with and (suspected) exposure to COVID-19
CPT/HCPCS: 36415; 70450; 70548; 70553; 71045; 80053; 80305; 80320; 81003; 82465; 82550; 82962; 83036; 84443; 84484; 85025; 85610; 85730; 87635; 92522; 93005; 93306; 96360; 96361; 96372; 97161; 97165; 97535; 99285; C9803; G0378; J1650

== ENCOUNTER 2020-11-11 23:33 | Emergency (ER) | payer MEDICARE, OTHER, SELFPAY ==
[2020-11-09 15:48] VITALS: BMI 36.9
[2020-11-11 23:20] VITALS: BP 134/75; PULSE 104; RESP 18; TEMP 36.8; O2SAT 93
[2020-11-11 23:34] VITALS: PULSE 104; RESP 18; O2SAT 93
[2020-11-11 23:36] VITALS: BP 134/75; PULSE 103; RESP 21; O2SAT 94
--- NOTE | 2020-11-11 23:37 | ED.NEUROSD ---
HPI - Neuro Symptoms/Deficit General Chief Complaint: Neuro Symptoms/Deficit Stated Complaint: Jonnathan Alvarez Time Seen by Provider: 11/11/20 23:37 History of Present Illness HPI Narrative: Patient is a 65-year-old male who presents with slurring of his speech, he was last seen normal at 6:00 p.m. however around 9:30 p.m. he started shaking. He says he was shaking and having some slurring of words EMS reports that he was in sinus tachycardia with heart rate in the 140s which has improved. They did note that his speech was slightly slow but did not have any other deficits. He is feeling a bit better now. He was admitted November 09 for TIA. He had a full workup including an MRI and echocardiogram. He was discharged home on Lipitor and aspirin. However he says he did not get his Lipitor filled. He says his Ritalin was increased from 5 mg to 10 mg a couple of weeks ago some of the symptoms he is experiencing are side effects of this he says. He denied any chest pain palpitations shortness of breath fevers chills numbness tingling or weakness no vision changes. Related Data Home Medications Medication Instructions Recorded Confirmed pramipexole 0.25 mg tablet 1 mg PO BID #0 10/12/10 11/09/20 (Mirapex) gabapentin 300 mg capsule 900 mg PO BID 11/12/18 11/09/20 meclizine 25 mg tablet 25 mg PO DAILY PRN 11/12/18 11/09/20 testosterone (Fortesta) 5 pump TRANSDERMAL QAM 11/12/18 11/09/20 Previous Rx's Medication Instructions Recorded aspirin 81 mg tablet,delayed 81 mg PO DAILY #30 tab 11/10/20 release atorvastatin 20 mg tablet (Lipitor) 80 mg PO BEDTIME #30 tab 11/10/20 atorvastatin 80 mg tablet 80 mg PO BEDTIME #30 tab 11/12/20 Allergies Allergy/AdvReac Type Severity Reaction Status Date / Time triazolam [From Halcion] AdvReac Severe Violent, Verified 11/09/20 12:03 aggitated zolpidem [From Ambien] AdvReac Severe Made me do Verified 11/09/20 12:03 crazy things Review of Systems Review of Systems Narrative: GENERAL: Denies chills, fatigue, malaise, fever, sweats, travel HEENT: Denies sinus pain, ear pain, sore throat, difficulty swallowing, neck pain RESPIRATORY: Denies dyspnea, cough, wheezing, hemoptysis, sputum. CARDIOVASCULAR: Denies chest pain, palpitations, orthopnea, edema GASTROINTESTINAL: Denies nausea, vomiting, abdominal pain, diarrhea, constipation, melena. : Denies dysuria, frequency, incontinence, hematuria, urinary retention, flank pain. MUSCULOSKELETAL: Denies weakness, joint pain, or bony pain SKIN: No rash, no erythema, no pruritus NEUROLOGIC: See HPI PSYCHIATRIC: No concerning psychosocial issues. 12 point review of systems is negative except for those stated above and HPI Patient History Medical History (Updated 11/12/20 @ 01:32 by Stephanie Cabrera DO) Anxiety Arthritis Back pain Compartment syndrome (~2012) Dizziness Fatty liver GERD (gastroesophageal reflux disease) Gout (~1989) HLD (hyperlipidemia) Kidney stones Neck pain Numbness Numbness and tingling in left arm CINDI on CPAP Pneumonia RBBB (right bundle branch block) RLS (restless legs syndrome) Surgical History Hx of arthroscopy of left knee Hx of elbow surgery Hx of right inguinal hernia repair Hx of tonsillectomy Hx of umbilical hernia repair Status post left unicompartmental knee replacement (~2012) Family History Mother Alive and well Father Natural with unknown cause Social History household members: none Smoking Status: Former smoker alcohol intake: current Smoking Status: Former smoker alcohol intake frequency: holidays/special occasions only Substance Use Type: marijuana Exam Initial Vital Signs Initial Vital Signs: Vital Signs Temperature 98.2 F 11/11/20 23:20 Pulse Rate 104 H 11/11/20 23:20 Respiratory Rate 18 11/11/20 23:20 Blood Pressure 134/75 11/11/20 23:20 Pulse Oximetry 93 11/11/20 23:20 GENERAL: Alert male HEENT: Head atraumatic,EOMI, pupils reactive, face symmetric, moist mucous membranes CARDIOVASCULAR: Regular rate and rhythm without murmurs, rubs or gallops. RESPIRATORY: Breath sounds equal bilaterally, no wheezes rales or rhonchi. ABDOMEN: Soft, nontender. Normoactive bowel sounds all 4 quadrants. No guarding or rebound. EXTREMITIES: Normal range of motion, no clubbing or edema. Neurovascularly intact NEUROLOGICAL: Alert and oriented x4.Normal gait and speech. Cranial nerves II through XII grossly intact. Good yafayl-jw-sdbk, good zhdg-sn-hmjl, strength equal bilaterally, no dysarthria or aphasia, sensation in tact to soft touch bilaterally, no visual changes, no facial droop SKIN: Warm, dry, no laceration, no petechiae, no rashes or lesions. Scores NIH Stroke Scale Level of Conciousness: Alert, keenly responsive Ask month/age: Answers both questions correctly. Open/close eyes, close hand: Performs both tasks correctly Best gaze horizontal: Normal Visual evans: No visual loss Facial palsy: Normal symetrical movement Left arm drift: No drift for full 10 sec Right arm drift: No drift for full 10 sec Left leg drift: No drift for full 5 sec Right leg drift: No drift for full 5 sec Limb ataxia: Absent Sensory on face/arms/legs: Normal, no sensory loss Best language: No aphasia, normal Dysarthria: Normal Extinction or inattention: No abnormality Total NIH Stroke scale score: 0 Course Orders Ordered: ED Orders 11/11/20 23:39 CT head/brain wo con Stat EKG-12 Lead Stat 11/11/20 23:40 Complete Blood Count AUTO DIFF Stat Comprehensive Metabolic Panel Stat Troponin & CK Cardiac Panel Stat 11/11/20 23:50 Blood Culture Stat Lactate (Lactic Acid) Stat 11/12/20 00:03 EKG-12 Lead Routine Vital Signs Vital signs: Vital Signs - 8 hr 11/11/20 23:20 11/11/20 23:34 11/11/20 23:36 Temperature 98.2 F Pulse Rate 104 H 104 H 103 H Respiratory Rate 18 18 21 Blood Pressure 134/75 134/75 Pulse Oximetry 93 93 94 11/12/20 00:00 11/12/20 00:30 11/12/20 01:19 Temperature Pulse Rate 100 H 96 H 87 Respiratory Rate 18 20 20 Blood Pressure 104/64 110/70 Pulse Oximetry 91 96 97 11/12/20 01:39 Temperature Pulse Rate 80 Respiratory Rate 18 Blood Pressure 116/71 Pulse Oximetry 98 MDM - Neuro Symptoms/Deficit Lab Data Result diagrams: 11/11/20 23:40 11/11/20 23:40 Labs: Lab Results 11/11/20 11/11/20 11/11/20 Range/Units 23:40 23:40 23:50 WBC 6.7 (4.5-11.0) X10^3/uL RBC 5.56 (4.5-5.9) X10^6/uL Hgb 17.7 H (13.5-17.5) g/dL Hct 52.3 (41-53) % MCV 94.0 (80-100) fL MCH 31.8 (26-34) PG MCHC 33.8 (30-36) % RDW 13.4 (11.6-14.8) % Plt Count 246 (150-400) X10^3/uL Neut % (Auto) 52.0 (50-75) % Lymph % (Auto) 34.0 (25-40) % [place] % (Auto) 10.7 (3-14) % Eos % (Auto) 2.7 (2-4) % Baso % (Auto) 0.6 (0-2) % Neut # (Auto) 3500 (0173-6029) /uL Lymph # (Auto) 2300 (6324-2063) /uL [place] # (Auto) 700 (0-900) /uL Eos # (Auto) 200 (0-450) /uL Baso # (Auto) 0 (0-100) /uL Sodium 139 (137-145) mmol/L Potassium 3.9 (3.4-5.1) mmol/L Chloride 103 (98-107) mmol/L Carbon Dioxide 27 (22-32) mmol/L BUN 17 (9-20) mg/dL Creatinine 0.95 (0.66-1.25) mg/dL Estimated GFR > 60.0 (>60) mL/min BUN/Creatinine Ratio 17.9 (6-22) Glucose 106 (80-110) mg/dL Lactate 1.0 (0.7-2.1) mmol/L Calcium 9.3 (8.4-10.2) mg/dL Total Bilirubin 0.8 (0.2-1.3) mg/dL AST 41 (17-59) IU/L ALT 47 (<50) IU/L Alkaline Phosphatase 53 (38-126) U/L Total Creatine Kinase 230 H (55-170) U/L CK-MB (CK-2) 3.39 H (<2.37) ng/mL CK-MB (CK-2) Rel Index 1.5 (1.5-5.0) % Troponin I 0.015 (0.01-0.034) ng/mL Total Protein 7.0 (6.3-8.2) g/dL Albumin 4.3 (3.5-5.0) g/dL Globulin 2.7 (1.7-4.1) g/dL Albumin/Globulin Ratio 1.6 (1.0-2.8) Imaging Data CT scan - head: Radiologist's Impression: Preliminary report no acute process ECG Data Interpretation: Sinus rhythm rate 96 IL interval 188 QRS 88 QTC 429 Q-wave noted in lead [address] changes no T-wave inversion, similar to previous EKG MDM Narrative Medical decision making narrative: Patient's symptoms are not noticeable now in the emergency department. Symptoms of shaking and not consistent with stroke. He had a full stroke workup in the last 2 days including MRI and echocardiogram. Initially thought possible infection with shaking possible fever and rigors however he is afebrile without leukocytosis no symptoms of infection. Symptoms may be related to increased Ritalin however did unclear at this time. It does not seen beneficial to admit patient with most recent workup in improved symptoms. I have discussed this with him he will follow-up his primary care provider and I will write him a paper prescription of his Lipitor. Discharge Plan Departure Patient Disposition: Home Clinical Impression: Medication reaction Qualifiers: Encounter type: initial encounter Qualified Code(s): T50.905A - Adverse effect of unspecified drugs, medicaments and biological substances, initial encounter Instructions: DI for Transient Ischemic Attack, DI for Adverse Drug Reaction -- Other Activity Restrictions/Additional Instructions: *You have been diagnosed with possible medication reaction *What to do: At this time I recommend he decrease her Ritalin back to 5 mg to see if her symptoms improve. He recently had a full stroke workup. His symptoms today are not consistent with mini stroke called a TIA or a stroke. You will need to follow up with her primary care provider. * please take all medications as previously prescribed *Follow up with your primary care provider in 2-3 days *Return to ER if you should have weakness, tingling, facial drooping, persistent dizziness, chest pain, shortness of breath or any new, worsening or concerning symptoms Prescriptions: New atorvastatin 80 mg tablet 80 mg PO BEDTIME Qty: 30 RF: 0 No Action pramipexole [Mirapex] 0.25 MG tablet 1 mg PO BID Qty: 0 RF: 0 meclizine 25 mg Tablet 25 mg PO DAILY PRN (Reason: Dizziness) RF: 0 gabapentin 300 mg Capsule 900 mg PO BID RF: 0 testosterone [Fortesta] 10 mg/0.5 gram /actuation Gel In Metered-Dose Pump 5 pump TRANSDERMAL QAM RF: 0 atorvastatin [Lipitor] 20 mg Tablet 80 mg PO BEDTIME Qty: 30 RF: 0 aspirin 81 mg Tablet,Delayed Release (Dr/Ec) 81 mg PO DAILY Qty: 30 RF: 0 Referrals: Cindy Ram PA-C [Primary Care Provider] -
--- NOTE | 2020-11-11 23:39 | DI.CT.S_ITS ---
PROCEDURE: CT HEAD/BRAIN WO CON INDICATIONS: slurring words TECHNIQUE: Noncontrast 4.5 mm thick angled axial sections acquired from the foramen magnum to the vertex, with coronal and sagittal reformats. For radiation dose reduction, the following was used: automated exposure control, adjustment of mA and/or kV according to patient size. COMPARISON: , MR, MR STROKE, 11/09/2020, 17:56. , CT, CT HEAD/BRAIN WO CON, 11/09/2020, 12:15. FINDINGS: Image quality: Excellent. CSF spaces: Basal cisterns are patent. No extra-axial fluid collections. The ventricles are symmetric in size and shape. Brain: No intracranial bleeds or masses. There is cerebral volume loss for age, with resultant ventricular and sulcal prominence. There are periventricular and deep white matter chronic small vessel ischemic changes. There is intracranial internal carotid artery atherosclerosis. Skull and face: Calvarium and visualized facial bones appear intact, without suspicious lesions. Sinuses: Visualized sinuses and mastoids are clear. IMPRESSION: Mild atrophy and white matter chronic ischemic change without acute hemorrhage or mass effect Note: Final report is concordant with preliminary interpretation by [facility] Approved by: Nikolay Harmon M.D. on 11/12/2020 at 6:37
[2020-11-11 23:58] LABS: Add Manual Diff / Slide Review NO; Basophils Absolute Auto 0 /uL (0-100); Basophils Percent Auto 0.6 % (0-2); Eosinophils Absolute Auto 200 /uL (0-450); Eosinophils Percent Auto 2.7 % (2-4); Hematocrit 52.3 % (41-53); Hemoglobin 17.7 g/dL (13.5-17.5); Lymphocytes Absolute Auto 2300 /uL (1100-4500); Mean Corpuscular HGB Conc 33.8 % (30-36); Mean Corpuscular Hemoglobin 31.8 PG (26-34); Monocytes Absolute Auto 700 /uL (0-900); Monocytes Percent Auto 10.7 % (3-14); Neutrophils Absolute Auto 3500 /uL (1500-7000); Platelet Count 246 X10^3/uL (150-400); Red Blood Cell Count 5.56 X10^6/uL (4.5-5.9); Red Cell Distribution Width 13.4 % (11.6-14.8); White Blood Cell Count 6.7 X10^3/uL (4.5-11.0)
[2020-11-12] VITALS: PULSE 100; RESP 18; O2SAT 91
[2020-11-12 00:08] LABS: Alanine Aminotransferase 47 IU/L (<50); Albumin 4.3 g/dL (3.5-5.0); Albumin Globulin Ratio 1.6 (1.0-2.8); Alkaline Phosphatase 53 U/L (38-126); Aspartate Aminotransferase 41 IU/L (17-59); BUN Creatinine Ratio 17.9 (6-22); Bilirubin Total 0.8 mg/dL (0.2-1.3); Blood Urea Nitrogen 17 mg/dL (9-20); Calcium 9.3 mg/dL (8.4-10.2); Carbon Dioxide 27 mmol/L (22-32); Chloride 103 mmol/L (98-107); Creatine Kinase 230 U/L (55-170); Estimated Glomerular Filt Rate > 60.0 mL/min (>60); Globulin 2.7 g/dL (1.7-4.1); Glucose 106 mg/dL (80-110); HEMOLYSIS < 15 (0-50); Potassium 3.9 mmol/L (3.4-5.1); Sodium 139 mmol/L (137-145)
[2020-11-12 00:19] LABS: Troponin I 0.015 ng/mL (0.01-0.034)
[2020-11-12 00:23] LABS: CKMB % Relative Index 1.5 % (1.5-5.0); Creatine Kinase MB 3.39 ng/mL (<2.37)
[2020-11-12 00:30] VITALS: BP 104/64; PULSE 96; RESP 20; O2SAT 96
[2020-11-12 01:19] VITALS: BP 110/70; PULSE 87; RESP 20; O2SAT 97
[2020-11-12 01:39] VITALS: BP 116/71; PULSE 80; RESP 18; O2SAT 98
== END 2020-11-12 01:41 | disposition home or self-care (01) ==
PROVIDERS: Emergency Provider Emergency Medicine; Family Provider Family Medicine; PCP Physician Assistant
DX: R47.81 Slurred speech (principal); R00.0 Tachycardia, unspecified; T50.905A Adverse effect of unspecified drugs, medicaments and biological substances, initial encounter
CPT/HCPCS: 36415; 70450; 80053; 82550; 82553; 83605; 84484; 85025; 87040; 93005; 93010; 99284

== ENCOUNTER → 2021-04-03 13:05 | Outpatient (ROUT) | payer MEDICARE, OTHER, SELFPAY ==
[2020-11-09 15:48] VITALS: BMI 36.9
[2021-04-03 13:30] LABS: COVID19 -Nasal RAPID Negative (Negative)
== END ==
PROVIDERS: Family Provider Family Medicine; PCP Physician Assistant; Visit Provider Physician Assistant
DX: Z20.822 Contact with and (suspected) exposure to COVID-19 (principal)
CPT/HCPCS: 87635

== ENCOUNTER 2021-06-05 10:54 | Emergency (ER) | payer MEDICARE, OTHER, SELFPAY ==
[2020-11-09 15:48] VITALS: BMI 36.9
[2021-06-05 11:04] VITALS: BP 162/97; PULSE 80; RESP 16; TEMP 36.5; O2SAT 97; BMI 36.9
[2021-06-05 12:31] VITALS: PULSE 78; O2SAT 97
[2021-06-05 12:32] VITALS: BP 136/88; PULSE 77; O2SAT 96
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
[2021-06-05 13:00] VITALS: BP 140/85; PULSE 81; RESP 18; O2SAT 95
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
[2021-06-05] MEDS: TET,DIPH,PERTUSS(ACELL),VAC/PF 0.5 ML SYRINGE IM (13:20)
== END 2021-06-05 13:29 | disposition home or self-care (01) ==
PROVIDERS: Emergency Provider Emergency Medicine; Family Provider Family Medicine; PCP Physician Assistant
DX: L03.116 Cellulitis of left lower limb (principal); Z23 Encounter for immunization
CPT/HCPCS: 90471; 99283; 90715

== ENCOUNTER → 2021-06-20 11:04 | Outpatient (CLI) | payer MEDICARE, OTHER, SELFPAY ==
[2020-11-09 15:48] VITALS: BMI 36.9
--- NOTE | 2021-06-20 | DI.ECHO.S_ITS ---
[place] +---------+ [facility] +---------+ : : [address] : : : : [id number] : : : : Phone: [phone]+ Echocardiogram Report + + :Name: MELVINA MCCRARY Study Date: 06/20/2021 Height: 72 in : :[facility] ReadingLocation: Weight: 275 lb : : Gender: Male BSA: 2.4 m2 : :: 1955 Age: 65 yrs BP: 142/80 mmHg: :Reason For Study: DILATED ASC AO : : Performed By: Edy Falk : :Referring: DARIAN SESAY : + + Interpretation Summary The ejection fraction is estimated to be 60-65%. There is no significant valvular heart disease. Procedure: A two-dimensional transthoracic echocardiogram with color flow and Doppler was performed. The study quality was technically good. Comparison is made with the echocardiogram of 11/10/20. The patient was in normal sinus rhythm during the exam. Left Ventricle: The left ventricle is normal in size. There is mild asymmetric left ventricular hypertrophy. The ejection fraction is estimated to be 60-65%. There are no focal wall motion abnormalities. Right Ventricle: The right ventricle is normal in size and function. Atria: The left atrium is mildly dilated. Right atrial size is normal. There is no Doppler evidence for an atrial septal defect. Mitral Valve: The mitral valve leaflets are slightly calcified. There is trace mitral regurgitation. Aortic Valve: The aortic valve is trileaflet. The aortic valve is mildly calcified. The aortic valve opens well. No aortic regurgitation is present. Tricuspid Valve: The tricuspid valve is normal in structure and function. No tricuspid regurgitation. Pulmonary artery pressures cannot be estimated because of the lack of a measurable TR jet velocity but the IVC suggests a CVP of around 8 mmHg. Pulmonic Valve: The pulmonic valve is normal in structure and function. There is trace pulmonic regurgitation. Great Vessels: The aortic root is normal size. The ascending aorta is mildly enlarged. The pulmonary artery is normal size. The IVC is dilated (diameter is greater than 2.1 cm) yet it collapses greater than 50% with a sniff. This suggests a right atrial pressure of 8 mm Hg. Pericardium/ Pleura There is no pericardial effusion. There is no pleural effusion. MMode/2D Measurements & Calculations LVIDd: 5.7 cm LVOT diam: 2.2 cm LVIDs: 3.7 cm Ao root diam: 3.8 cm FS: 35.4 % asc Aorta Diam: 4.2 cm EPSS: 0.45 cm Ao Arch Diam (Prox Trans): 3.7 cm IVSd: 1.3 cm LVPWd: 0.95 cm LV fernandes. diameter/BSA (cm/m^2): 2.3 LV sys. diameter/BSA (cm/m^2): 1.5 LA A2 area: 25.1 cm2 RA long axis: 6.6 cm LA A4 area: 31.8 cm2 RA area: 22.1 cm2 LA length (vol): 7.9 cm RA vol: 62.7 ml LA vol: 85.5 ml RA : 25.7 ml/m2 LA vol index: 35.1 ml/m2 IVC diam: 2.6 cm TAPSE: 2.5 cm Doppler Measurements & Calculations Ao V2 max: 159.5 cm/sec LVOT Max Nicolas: 134.2 cm/sec Ao V2 mean: 122.6 cm/sec LV V1 max P.2 mmHg Ao max P.2 mmHg LV V1 VTI: 24.9 cm Ao mean P.4 mmHg MONTY(I,D): 3.0 cm2 Ao V2 VTI: 32.2 cm MONYT(V,D): 3.2 cm2 sev ratio: 0.77 MONTY indexed to BSA (cm^2/m^2): 1.2 MV E max nicolas: 91.3 cm/sec PA V2 max: 98.4 cm/sec MV A max nicolas: 97.9 cm/sec PA V2 mean: 68.2 cm/sec MV E/A: 0.93 PA mean P.1 mmHg Med Peak E' Nicolas: 6.9 cm/sec PA pr(Accel): 49.9 mmHg E/E' med: 13.2 Lat Peak E' Nicolas: 6.4 cm/sec E/E' lat: 14.2 E/e' average: 13.7 MV dec time: 0.18 sec SV(LVOT): 95.0 ml Reading Physician:04:46 PM
--- NOTE | 2021-06-20 12:33 | DI.CT.S_ITS ---
PROCEDURE: CT ABDOMEN PELVIS W CON INDICATIONS: Ascending aorta enlargement;Abdominal Pain TECHNIQUE: After the administration of oral and intravenous contrast, axial sections were acquired from the lung bases to the pubic symphysis. Coronal and sagittal reformats were performed. For radiation dose reduction, the following was used: automated exposure control, adjustment of mA and/or kV according to patient size. COMPARISON:None. FINDINGS: Image quality: Excellent. Lung bases: Unremarkable. Heart: No significant findings. ABDOMEN: Liver: Unremarkable. Gallbladder: Unremarkable. Biliary ducts: Unremarkable. Pancreas: Unremarkable. Spleen: Unremarkable. Adrenal Glands: Unremarkable. Kidneys and Ureters: Multiple nonobstructing right renal stones are noted ranging in size from 1-4 millimeters. 1 millimeter nonobstructing left renal stone. No hydronephrosis. Stomach and Bowel: Stomach, small bowel loops, and colon are unremarkable. Few scattered colonic diverticula without evidence of diverticulosis. The appendix is normal. Peritoneum: No abnormal intraperitoneal fluid. No free air. Ventral Wall: No hernia. Abdominal Nodes: No retroperitoneal or mesenteric adenopathy by size criteria. Vessels: Aorta and inferior vena cava are normal in size. Scattered atherosclerotic calcifications involving the abdominal and pelvic vasculature. PELVIS: Pelvic Organs: Unremarkable. Bladder: Unremarkable. Pelvic Nodes: No enlarged lymph nodes. Miscellaneous: Bilateral fat containing inguinal hernias. Bones: Spine degenerative disc disease and facet arthropathy. L4 limbus vertebrae. IMPRESSION: 1. No acute disease process. 2. Small bilateral nonobstructing renal stones. 3. Colonic diverticulosis without evidence of diverticulitis. 4. Bilateral fat containing inguinal hernias. 5. No free fluid or free air. 6. No dilated loops of bowel. 7. Abdominal aorta has normal caliber. Dictated by: Radha Pedersen MD, PhD on 06/20/2021 at 12:51 Approved by: Radha Pedersen MD, PhD on 06/20/2021 at 12:56
== END ==
PROVIDERS: Family Provider Family Medicine; PCP Physician Assistant; Referring Provider Physician Assistant; Visit Provider Physician Assistant
DX: I77.89 Other specified disorders of arteries and arterioles (principal); N20.0 Calculus of kidney; K57.90 Diverticulosis of intestine, part unspecified, without perforation or abscess without bleeding; K40.20 Bilateral inguinal hernia, without obstruction or gangrene, not specified as recurrent; R10.84 Generalized abdominal pain
CPT/HCPCS: 74177; 93306; Q9967

== ENCOUNTER 2021-06-29 18:34 | Emergency (ER) | payer MEDICARE, OTHER, SELFPAY ==
[2020-11-09 15:48] VITALS: BMI 36.9
[2021-06-29 18:43] VITALS: BP 172/105; PULSE 83; RESP 18; TEMP 36.4; O2SAT 99; BMI 36.3
[2021-06-29 19:00] VITALS: BP 147/92; PULSE 87; RESP 18; O2SAT 97
--- NOTE | 2021-06-29 19:24 | ED_ITS ---
HPI - Psych <Stephanie Cabrera, DO - Last Filed: 06/30/21 21:15> General Chief Complaint: Psychiatric Symptoms Stated Complaint: Doesn't Want to Be Alone Time Seen by Provider: 06/29/21 18:54 Source: patient Mode of arrival: Ambulatory History of Present Illness HPI Narrative: Patient is a 66-year-old male with history of hyperlipidemia and depression presenting today with thoughts of suicide. He says that he has had a gradual decline since February he has experienced anhedonia. He has no motivation to do anything. He has about typically goes fishing he is not excited about that. He has had thoughts of harming himself he has had plans but no specific plan today. Today he says he does not feel like he is able to trust himself at home. [facility] He in fact drove down there with a bag packed ready to stay and they gave him a prescription for hydroxyzine and sent him home. He is quite frustrated with their process. He recently had a cellulitis infection was placed on Keflex. He has had some chills and generalized weakness as well. No chest pain or shortness of breath no cough. No painful or frequent urination. His infection has cleared. He is currently here voluntarily. Related Data Home Medications Medication Instructions Recorded Confirmed pramipexole 0.25 mg tablet 1 mg PO BID #0 10/12/10 11/09/20 (Mirapex) gabapentin 300 mg capsule 900 mg PO BID 11/12/18 11/09/20 meclizine 25 mg tablet 25 mg PO DAILY PRN 11/12/18 11/09/20 testosterone (Fortesta) 5 pump TRANSDERMAL QAM 11/12/18 11/09/20 Previous Rx's Medication Instructions Recorded aspirin 81 mg tablet,delayed 81 mg PO DAILY #30 tab 11/10/20 release atorvastatin 20 mg tablet (Lipitor) 80 mg PO BEDTIME #30 tab 11/10/20 atorvastatin 80 mg tablet 80 mg PO BEDTIME #30 tab 11/12/20 cephalexin 500 mg capsule 500 mg PO TID #21 cap 06/05/21 hydroxyzine HCl 50 mg tablet 50 mg PO QID PRN #30 tab 06/30/21 Allergies Allergy/AdvReac Type Severity Reaction Status Date / Time triazolam [From Halcion] AdvReac Severe Violent, Verified 06/05/21 11:04 aggitated Review of Systems <Stephanie Cabrera DO - Last Filed: 06/30/21 21:15> Review of Systems Narrative: GENERAL: Denies chills, fatigue, malaise, fever, sweats, travel HEENT: Denies sinus pain, ear pain, sore throat, difficulty swallowing, neck pain RESPIRATORY: Denies dyspnea, cough, wheezing, hemoptysis, sputum. CARDIOVASCULAR: Denies chest pain, palpitations, orthopnea, edema GASTROINTESTINAL: Denies nausea, vomiting, abdominal pain, diarrhea, constipation, melena. : Denies dysuria, frequency, incontinence, hematuria, urinary retention, flank pain. MUSCULOSKELETAL: Denies weakness, joint pain, or bony pain SKIN: See HPI NEUROLOGIC: Denies weakness, dizziness, headache, numbness, change in speech, confusion PSYCHIATRIC: See HPI 12 point review of systems is negative except for those stated above and HPI Patient History <Stephanie Cabrera DO - Last Filed: 06/30/21 21:15> Medical History (Updated 06/30/21 @ 13:04 by Anna Cornejo DO) Anxiety Arthritis Back pain Compartment syndrome (~2012) Dizziness Fatty liver GERD (gastroesophageal reflux disease) Gout (~1989) HLD (hyperlipidemia) Kidney stones Neck pain Numbness Numbness and tingling in left arm CINDI on CPAP Pneumonia RBBB (right bundle branch block) RLS (restless legs syndrome) Surgical History Hx of arthroscopy of left knee Hx of elbow surgery Hx of right inguinal hernia repair Hx of tonsillectomy Hx of umbilical hernia repair Status post left unicompartmental knee replacement (~2012) Family History Mother Alive and well Father Natural with unknown cause Social History household members: none Smoking Status: Former smoker alcohol intake: current Smoking Status: Former smoker alcohol intake frequency: holidays/special occasions only Substance Use Type: marijuana Exam <Stephanie Cabrera DO - Last Filed: 06/30/21 21:15> Initial Vital Signs Initial Vital Signs: Vital Signs Temperature 97.5 F L 06/29/21 18:43 Pulse Rate 83 06/29/21 18:43 Respiratory Rate 18 06/29/21 18:43 Blood Pressure 172/105 H 06/29/21 18:43 Pulse Oximetry 99 06/29/21 18:43 GENERAL: Alert 66 year male no acute distress HEENT: Head atraumatic,EOMI, pupils reactive, face symmetric, [moist] mucous me mbranes CARDIOVASCULAR: Regular rate and rhythm without murmurs, rubs or gallops. RESPIRATORY: Breath sounds equal bilaterally, no wheezes rales or rhonchi. ABDOMEN: Soft, nontender. Normoactive bowel sounds all 4 quadrants. No guarding or rebound. EXTREMITIES: Normal range of motion, no clubbing or edema. Neurovascularly intact NEUROLOGICAL: Alert and oriented x4.Normal gait and speech. SKIN: Warm, dry, no laceration, no petechiae, no rashes or lesions. <Anna Cornejo DO - Last Filed: 06/30/21 14:06> Initial Vital Signs Initial Vital Signs: Vital Signs Temperature 97.5 F L 06/29/21 18:43 Pulse Rate 83 06/29/21 18:43 Respiratory Rate 18 06/29/21 18:43 Blood Pressure 172/105 H 06/29/21 18:43 Pulse Oximetry 99 06/29/21 18:43 Course <Stephanie Cabrera DO - Last Filed: 06/30/21 21:15> Orders Ordered: Discontinued Medications Famotidine (Famotidine 20 Mg Tablet) 20 mg PO NOW ONE Stop: 06/30/21 08:37 Last Admin: 06/30/21 09:04 Dose: 20 mg Documented by: DESI Gabapentin (Gabapentin 600 Mg Tablet) 1,200 mg PO NOW ONE Stop: 06/29/21 21:11 Last Admin: 06/29/21 21:42 Dose: 1,200 mg Documented by: KYLE Gabapentin (Gabapentin 300 Mg Capsule) 900 mg PO NOW ONE Stop: 06/30/21 08:36 Last Admin: 06/30/21 09:05 Dose: 900 mg Documented by: DESI Hydroxyzine Pamoate (Hydroxyzine Pamoate 25 Mg Capsule) 50 mg PO NOW ONE Stop: 06/30/21 08:36 Last Admin: 06/30/21 09:04 Dose: 50 mg Documented by: DESI Ondansetron HCl (Ondansetron 4 Mg Odt) 8 mg SL Q8HR PRN PRN Reason: Nausea Last Admin: 06/30/21 11:20 Dose: 8 mg Documented by: HERMAN Pramipexole Dihydrochloride (Pramipexole 1 Mg Tablet) 1 mg PO NOW ONE Stop: 06/29/21 21:11 Last Admin: 06/29/21 21:42 Dose: 1 mg Documented by: KYLE Pramipexole Dihydrochloride (Pramipexole 0.25 Mg Tablet) 0.5 mg PO NOW ONE Stop: 06/30/21 08:36 Last Admin: 06/30/21 09:04 Dose: 0.5 mg Documented by: DESI Zolpidem Tartrate (Zolpidem 5 Mg Tablet) 12.5 mg PO BEDTIME PRN PRN Reason: Sleep Last Admin: 06/29/21 21:44 Dose: 10 mg Documented by: KYLE Vital Signs Vital signs: Vital Signs - 8 hr 06/30/21 06:45 06/30/21 10:08 06/30/21 12:46 Temperature 98.1 F 98.1 F Pulse Rate 84 96 H 90 Respiratory Rate 14 18 18 Blood Pressure 146/95 H 169/107 H 176/90 H Pulse Oximetry 96 96 96 <Anna Cornejo DO - Last Filed: 06/30/21 14:06> Orders Ordered: Discontinued Medications Famotidine (Famotidine 20 Mg Tablet) 20 mg PO NOW ONE Stop: 06/30/21 08:37 Last Admin: 06/30/21 09:04 Dose: 20 mg Documented by: DESI Gabapentin (Gabapentin 600 Mg Tablet) 1,200 mg PO NOW ONE Stop: 06/29/21 21:11 Last Admin: 06/29/21 21:42 Dose: 1,200 mg Documented by: KYLE Gabapentin (Gabapentin 300 Mg Capsule) 900 mg PO NOW ONE Stop: 06/30/21 08:36 Last Admin: 06/30/21 09:05 Dose: 900 mg Documented by: DESI Hydroxyzine Pamoate (Hydroxyzine Pamoate 25 Mg Capsule) 50 mg PO NOW ONE Stop: 06/30/21 08:36 Last Admin: 06/30/21 09:04 Dose: 50 mg Documented by: DESI Ondansetron HCl (Ondansetron 4 Mg Odt) 8 mg SL Q8HR PRN PRN Reason: Nausea Last Admin: 06/30/21 11:20 Dose: 8 mg Documented by: HERMAN Pramipexole Dihydrochloride (Pramipexole 1 Mg Tablet) 1 mg PO NOW ONE Stop: 06/29/21 21:11 Last Admin: 06/29/21 21:42 Dose: 1 mg Documented by: KYLE Pramipexole Dihydrochloride (Pramipexole 0.25 Mg Tablet) 0.5 mg PO NOW ONE Stop: 06/30/21 08:36 Last Admin: 06/30/21 09:04 Dose: 0.5 mg Documented by: DESI Zolpidem Tartrate (Zolpidem 5 Mg Tablet) 12.5 mg PO BEDTIME PRN PRN Reason: Sleep Last Admin: 06/29/21 21:44 Dose: 10 mg Documented by: KYLE Reevaluation(s) Reevaluation #1: This is a 66-year-old male signed out to myself. Patient describes depression. Suicidal thoughts but no intent. He states he does have anger issues and will often act out being destructive her breaking property. He came last night concerned as he has been having these thoughts and states he does not want harm himself he does really plan to harm himself but states when he is worried he might break something or hurt someone the property. Patient states he has tried Wellbutrin, he had sertraline added to this and had what sounds like an adverse medication reaction and stopped both of them. He contacted the [place] psychiatrist who prescribes sertraline again he took 1 dose last night but has not taken any additional medications. He was also being prescribed hydroxyzine which he did find helpful but has since run out. At this time patient is agreeable with plan to wait and speak with social work regarding options. We discussed voluntary placement versus following up outpatient. Patient seems to be leaning more towa rds outpatient follow-up but preferably with psychiatry for [facility] rather than the [place] and is interested in continuing with counseling but finds his current counselor not a good fit. Time: 08:36 Vital Signs Vital signs: Vital Signs - 8 hr 06/30/21 06:45 06/30/21 10:08 06/30/21 12:46 Temperature 98.1 F 98.1 F Pulse Rate 84 96 H 90 Respiratory Rate 14 18 18 Blood Pressure 146/95 H 169/107 H 176/90 H Pulse Oximetry 96 96 96 [facility] - Psych <Stephanie Cabrera, - Last Filed: 06/30/21 21:15> Lab Data Result diagrams: 06/29/21 19:25 06/29/21 19:25 Labs: Lab Results 06/29/21 06/29/21 06/29/21 Range/Units 19:25 19:25 19:25 WBC 5.6 (4.5-11.0) X10^3/uL RBC 5.49 (4.5-5.9) X10^6/uL Hgb 17.7 H (13.5-17.5) g/dL Hct 51.1 (41-53) % MCV 93.2 (80-100) fL MCH 32.3 (26-34) PG MCHC 34.7 (30-36) % RDW 14.3 (11.6-14.8) % Plt Count 204 (150-400) X10^3/uL Neut % (Auto) 46.1 L (50-75) % Lymph % (Auto) 36.1 (25-40) % [place] % (Auto) 13.1 (3-14) % Eos % (Auto) 3.8 (2-4) % Baso % (Auto) 0.9 (0-2) % Neut # (Auto) 2600 (4718-4659) /uL Lymph # (Auto) 2000 (0749-4385) /uL [place] # (Auto) 700 (0-900) /uL Eos # (Auto) 200 (0-450) /uL Baso # (Auto) 100 (0-100) /uL Sodium 137 (137-145) mmol/L Potassium 4.1 (3.4-5.1) mmol/L Chloride 102 (98-107) mmol/L Carbon Dioxide 26 (22-32) mmol/L BUN 13 (9-20) mg/dL Creatinine 0.88 (0.66-1.25) mg/dL Estimated GFR > 60.0 (>60) mL/min BUN/Creatinine Ratio 14.8 (6-22) Glucose 88 (80-110) mg/dL Calcium 9.4 (8.4-10.2) mg/dL Total Bilirubin 1.1 (0.2-1.3) mg/dL AST 39 (17-59) IU/L ALT 43 (<50) IU/L Alkaline Phosphatase 70 (38-126) U/L Total Creatine Kinase 118 (55-170) U/L CK-MB (CK-2) 2.50 H (<2.37) ng/mL CK-MB (CK-2) Rel Index 2.1 (1.5-5.0) % Troponin I < 0.012 (0.01-0.034) ng/mL Total Protein 7.6 (6.3-8.2) g/dL Albumin 4.8 (3.5-5.0) g/dL Globulin 2.8 (1.7-4.1) g/dL Albumin/Globulin Ratio 1.7 (1.0-2.8) TSH 2.20 (0.47-4.68) uIU/mL U Opiates 300ng/mL cut (Negative) Ur Oxycodone Screen (Negative) Urine Methadone Screen (Negative) Ur Barbiturates Screen (Negative) U Tricyclic Antidepress (Negative) Ur Phencyclidine Scrn (Negative) Ur Amphetamines Screen (Negative) U Methamphetamines Scrn (Negative) Ur MDMA Scrn (Ecstasy) (Negative) U Benzodiazepines Scrn (Negative) Urine Cocaine Screen (Negative) U Marijuana (THC) Screen (Negative) Ethyl Alcohol < 10 ( - 10) mg/dL SARS-CoV-2 (PCR) (Negative) 06/29/21 06/29/21 Range/Units 19:25 19:30 WBC (4.5-11.0) X10^3/uL RBC (4.5-5.9) X10^6/uL Hgb (13.5-17.5) g/dL Hct (41-53) % MCV (80-100) fL MCH (26-34) PG MCHC (30-36) % RDW (11.6-14.8) % Plt Count (150-400) X10^3/uL Neut % (Auto) (50-75) % Lymph % (Auto) (25-40) % [place] % (Auto) (3-14) % Eos % (Auto) (2-4) % Baso % (Auto) (0-2) % Neut # (Auto) (3055-4820) /uL Lymph # (Auto) (8656-2361) /uL [place] # (Auto) (0-900) /uL Eos # (Auto) (0-450) /uL Baso # (Auto) (0-100) /uL Sodium (137-145) mmol/L Potassium (3.4-5.1) mmol/L Chloride (98-107) mmol/L Carbon Dioxide (22-32) mmol/L BUN (9-20) mg/dL Creatinine (0.66-1.25) mg/dL Estimated GFR (>60) mL/min BUN/Creatinine Ratio (6-22) Glucose (80-110) mg/dL Calcium (8.4-10.2) mg/dL Total Bilirubin (0.2-1.3) mg/dL AST (17-59) IU/L ALT (<50) IU/L Alkaline Phosphatase (38-126) U/L Total Creatine Kinase (55-170) U/L CK-MB (CK-2) (<2.37) ng/mL CK-MB (CK-2) Rel Index (1.5-5.0) % Troponin I (0.01-0.034) ng/mL Total Protein (6.3-8.2) g/dL Albumin (3.5-5.0) g/dL Globulin (1.7-4.1) g/dL Albumin/Globulin Ratio (1.0-2.8) TSH (0.47-4.68) uIU/mL U Opiates 300ng/mL cut Negative (Negative) Ur Oxycodone Screen Negative (Negative) Urine Methadone Screen Negative (Negative) Ur Barbiturates Screen Negative (Negative) U Tricyclic Antidepress Negative (Negative) Ur Phencyclidine Scrn Negative (Negative) Ur Amphetamines Screen Negative (Negative) U Methamphetamines Scrn Negative (Negative) Ur MDMA Scrn (Ecstasy) Negative (Negative) U Benzodiazepines Scrn Negative (Negative) Urine Cocaine Screen Negative (Negative) U Marijuana (THC) Screen Positive H (Negative) Ethyl Alcohol ( - 10) mg/dL SARS-CoV-2 (PCR) Negative (Negative) Urine Dip Bedside Urine Glucose Negative Bedside Urine Bilirubin - Negative Bedside Urine Ketone - Negative Urine Specific [place] 1.020 Bedside Urine Occult Blood - Negative Bedside Urine pH 6.5 Bedside Urine Protein - Negative Bedside Urine Urobilinogen - Negative Bedside Urine Nitrite - Negative Bedside Urine Leukocytes - Negative Esterase ECG Data Interpretation: Normal sinus rhythm rate 75 NJ interval 216 QRS [address] changes no T- wave inversion, similiar to prior in 11/12/20 MDM Narrative Medical decision making narrative: At this time patient does not meet involuntary criteria. He has no specific plan to harm himself however he does not trust himself at. He also expresses that he has severe anger outbursts gross things. He would like to start feeling normal again. He is requesting placement. <Anna Cornejo, DO - Last Filed: 06/30/21 14:06> Lab Data Labs: Lab Results 06/29/21 06/29/21 06/29/21 Range/Units 19:25 19:25 19:25 WBC 5.6 (4.5-11.0) X10^3/uL RBC 5.49 (4.5-5.9) X10^6/uL Hgb 17.7 H (13.5-17.5) g/dL Hct 51.1 (41-53) % MCV 93.2 (80-100) fL MCH 32.3 (26-34) PG MCHC 34.7 (30-36) % RDW 14.3 (11.6-14.8) % Plt Count 204 (150-400) X10^3/uL Neut % (Auto) 46.1 L (50-75) % Lymph % (Auto) 36.1 (25-40) % [place] % (Auto) 13.1 (3-14) % Eos % (Auto) 3.8 (2-4) % Baso % (Auto) 0.9 (0-2) % Neut # (Auto) 2600 (2121-1343) /uL Lymph # (Auto) 2000 (2835-7084) /uL [place] # (Auto) 700 (0-900) /uL Eos # (Auto) 200 (0-450) /uL Baso # (Auto) 100 (0-100) /uL Sodium 137 (137-145) mmol/L Potassium 4.1 (3.4-5.1) mmol/L Chloride 102 (98-107) mmol/L Carbon Dioxide 26 (22-32) mmol/L BUN 13 (9-20) mg/dL Creatinine 0.88 (0.66-1.25) mg/dL Estimated GFR > 60.0 (>60) mL/min BUN/Creatinine Ratio 14.8 (6-22) Glucose 88 (80-110) mg/dL Calcium 9.4 (8.4-10.2) mg/dL Total Bilirubin 1.1 (0.2-1.3) mg/dL AST 39 (17-59) IU/L ALT 43 (<50) IU/L Alkaline Phosphatase 70 (38-126) U/L Total Creatine Kinase 118 (55-170) U/L CK-MB (CK-2) 2.50 H (<2.37) ng/mL CK-MB (CK-2) Rel Index 2.1 (1.5-5.0) % Troponin I < 0.012 (0.01-0.034) ng/mL Total Protein 7.6 (6.3-8.2) g/dL Albumin 4.8 (3.5-5.0) g/dL Globulin 2.8 (1.7-4.1) g/dL Albumin/Globulin Ratio 1.7 (1.0-2.8) TSH 2.20 (0.47-4.68) uIU/mL U Opiates 300ng/mL cut (Negative) Ur Oxycodone Screen (Negative) Urine Methadone Screen (Negative) Ur Barbiturates Screen (Negative) U Tricyclic Antidepress (Negative) Ur Phencyclidine Scrn (Negative) Ur Amphetamines Screen (Negative) U Methamphetamines Scrn (Negative) Ur MDMA Scrn (Ecstasy) (Negative) U Benzodiazepines Scrn (Negative) Urine Cocaine Screen (Negative) U Marijuana (THC) Screen (Negative) Ethyl Alcohol < 10 ( - 10) mg/dL SARS-CoV-2 (PCR) (Negative) 06/29/21 06/29/21 Range/Units 19:25 19:30 WBC (4.5-11.0) X10^3/uL RBC (4.5-5.9) X10^6/uL Hgb (13.5-17.5) g/dL Hct (41-53) % MCV (80-100) fL MCH (26-34) PG MCHC (30-36) % RDW (11.6-14.8) % Plt Count (150-400) X10^3/uL Neut % (Auto) (50-75) % Lymph % (Auto) (25-40) % [place] % (Auto) (3-14) % Eos % (Auto) (2-4) % Baso % (Auto) (0-2) % Neut # (Auto) (4329-2558) /uL Lymph # (Auto) (9673-3663) /uL [place] # (Auto) (0-900) /uL Eos # (Auto) (0-450) /uL Baso # (Auto) (0-100) /uL Sodium (137-145) mmol/L Potassium (3.4-5.1) mmol/L Chloride (98-107) mmol/L Carbon Dioxide (22-32) mmol/L BUN (9-20) mg/dL Creatinine (0.66-1.25) mg/dL Estimated GFR (>60) mL/min BUN/Creatinine Ratio (6-22) Glucose (80-110) mg/dL Calcium (8.4-10.2) mg/dL Total Bilirubin (0.2-1.3) mg/dL AST (17-59) IU/L ALT (<50) IU/L Alkaline Phosphatase (38-126) U/L Total Creatine Kinase (55-170) U/L CK-MB (CK-2) (<2.37) ng/mL CK-MB (CK-2) Rel Index (1.5-5.0) % Troponin I (0.01-0.034) ng/mL Total Protein (6.3-8.2) g/dL Albumin (3.5-5.0) g/dL Globulin (1.7-4.1) g/dL Albumin/Globulin Ratio (1.0-2.8) TSH (0.47-4.68) uIU/mL U Opiates 300ng/mL cut Negative (Negative) Ur Oxycodone Screen Negative (Negative) Urine Methadone Screen Negative (Negative) Ur Barbiturates Screen Negative (Negative) U Tricyclic Antidepress Negative (Negative) Ur Phencyclidine Scrn Negative (Negative) Ur Amphetamines Screen Negative (Negative) U Methamphetamines Scrn Negative (Negative) Ur MDMA Scrn (Ecstasy) Negative (Negative) U Benzodiazepines Scrn Negative (Negative) Urine Cocaine Screen Negative (Negative) U Marijuana (THC) Screen Positive H (Negative) Ethyl Alcohol ( - 10) mg/dL SARS-CoV-2 (PCR) Negative (Negative) Urine Dip Bedside Urine Glucose Negative Bedside Urine Bilirubin - Negative Bedside Urine Ketone - Negative Urine Specific [place] 1.020 Bedside Urine Occult Blood - Negative Bedside Urine pH 6.5 Bedside Urine Protein - Negative Bedside Urine Urobilinogen - Negative Bedside Urine Nitrite - Negative Bedside Urine Leukocytes - Negative Esterase MDM Narrative Medical decision making narrative: At this time patient does not meet involuntary criteria. He has no specific plan to harm himself however he does not trust himself at. He also expresses that he has severe anger outbursts gross things. He would like to start feeling normal again. He is requesting placement. 06/30/21 0838am: Dr. Cornejo. Patient signed out to myself by Dr. Cabrera. Agree with Dr. Carrera assessment the patient does not meet involuntary criteria. Patient at this time seems less likely to want voluntary placement but is agreeable the child was social Work about possible options for treatment. Patient is due for his morning medications which include Mirapex 0.5 mg and gabapentin 900 mg in the morning. He also finds hydroxyzine 50 mg helpful for his outbursts of what he describes as range. He states he is not due for any other medications this morning at this time. Patient case was reviewed and he was accepted at the [facility]. Plan is for him to be discharged home so he can collect his home medications for the next 5 days and then be transported there by emma kennedy who is present at the bedside. Patient is out of his hydroxyzine which he has found helpful when he has episodes where he is very angry for feels a lot of range and was given a prescription for this to fill as well. Patient feels comfortable with plan all questions answered. 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 Take 5 days worth of medications. There is a prescription included for hydroxyzine take as prescribed. Please return if you have thoughts of harming yourself or others if you feel unsafe at any time, having persistent or worsening symptoms or any other new or concerning symptoms. Prescriptions: New hydroxyzine HCl 50 mg tablet 50 mg PO QID PRN (Reason: anxiety) Qty: 30 0RF No Action pramipexole [Mirapex] 0.25 MG tablet 1 mg PO BID Qty: 0 0RF meclizine 25 mg Tablet 25 mg PO DAILY PRN (Reason: Dizziness) 0RF gabapentin 300 mg Capsule 900 mg PO BID 0RF testosterone [Fortesta] 10 mg/0.5 gram /actuation Gel In Metered-Dose Pump 5 pump TRANSDERMAL QAM 0RF atorvastatin [Lipitor] 20 mg Tablet 80 mg PO BEDTIME Qty: 30 0RF aspirin 81 mg Tablet,Delayed Release (Dr/Ec) 81 mg PO DAILY Qty: 30 0RF atorvastatin 80 mg tablet 80 mg PO BEDTIME Qty: 30 0RF cephalexin 500 mg capsule 500 mg PO TID Qty: 21 0RF Referrals: Cindy Ram PA-C [Primary Care Provider] -
--- NOTE | 2021-06-29 19:30 | PC.NURSE ---
Before EKG and blood draw pt became short of breath, flushed, diaphoretic and tachypnic. Episode lasted a couple minutes and resolved spontaneously. SPO@ remained 96% on room air. Pt states that he has been alternating between chills and feeling flushed for the last couple days. Dr Cabrera updated.
[2021-06-29 19:43] LABS: Add Manual Diff / Slide Review NO; Basophils Absolute Auto 100 /uL (0-100); Basophils Percent Auto 0.9 % (0-2); Eosinophils Absolute Auto 200 /uL (0-450); Eosinophils Percent Auto 3.8 % (2-4); Hematocrit 51.1 % (41-53); Hemoglobin 17.7 g/dL (13.5-17.5); Lymphocytes Absolute Auto 2000 /uL (1100-4500); Lymphocytes Percent Auto 36.1 % (25-40); Mean Corpuscular HGB Conc 34.7 % (30-36); Mean Corpuscular Hemoglobin 32.3 PG (26-34); Mean Corpuscular Volume 93.2 fL (80-100); Monocytes Absolute Auto 700 /uL (0-900); Monocytes Percent Auto 13.1 % (3-14); Neutrophils Absolute Auto 2600 /uL (1500-7000); Neutrophils Percent Auto 46.1 % (50-75); Platelet Count 204 X10^3/uL (150-400); Red Blood Cell Count 5.49 X10^6/uL (4.5-5.9); Red Cell Distribution Width 14.3 % (11.6-14.8); White Blood Cell Count 5.6 X10^3/uL (4.5-11.0)
[2021-06-29 19:55] LABS: Alanine Aminotransferase 43 IU/L (<50); Albumin 4.8 g/dL (3.5-5.0); Albumin Globulin Ratio 1.7 (1.0-2.8); Alkaline Phosphatase 70 U/L (38-126); Aspartate Aminotransferase 39 IU/L (17-59); BUN Creatinine Ratio 14.8 (6-22); Bilirubin Total 1.1 mg/dL (0.2-1.3); Blood Urea Nitrogen 13 mg/dL (9-20); Calcium 9.4 mg/dL (8.4-10.2); Carbon Dioxide 26 mmol/L (22-32); Chloride 102 mmol/L (98-107); Creatine Kinase 118 U/L (55-170); Estimated Glomerular Filt Rate > 60.0 mL/min (>60); Ethanol (ETOH) < 10 mg/dL; Globulin 2.8 g/dL (1.7-4.1); Glucose 88 mg/dL (80-110); HEMOLYSIS < 15 (0-50); Potassium 4.1 mmol/L (3.4-5.1); Sodium 137 mmol/L (137-145); Total Protein 7.6 g/dL (6.3-8.2)
[2021-06-29 19:56] LABS: Ur Creatinine Normal (Normal); Ur Specific Gravity Normal (Normal); Urine pH Normal (Normal)
[2021-06-29 19:57] LABS: UR Morphine/Opiate cutoff 300 Negative (Negative); Urine Amphetamines Negative (Negative); Urine Barbiturates Negative (Negative); Urine Benzodiazepines Negative (Negative); Urine Cocaine Negative (Negative); Urine MDMA Negative (Negative); Urine Methadone Negative (Negative); Urine Methamphetamines Negative (Negative); Urine Oxycodone Negative (Negative); Urine Phencyclidine Negative (Negative); Urine Tetrahydrocannabinol Positive (Negative); Urine Tricyclic Antidepressant Negative (Negative)
[2021-06-29 20:03] LABS: COVID19 -Nasal RAPID Negative (Negative)
[2021-06-29 20:06] LABS: Troponin I < 0.012 ng/mL (0.01-0.034)
[2021-06-29 20:10] LABS: CKMB % Relative Index 2.1 % (1.5-5.0)
--- NOTE | 2021-06-29 21:08 | PC.NURSE ---
Patient getting agitated about his normal meds he takes at night and also has expressed he doesn't want to be in his current room. Nurse notified. Nurse spoke with patient was able to help out the medication situation but educated patient why we can't switch room. We have offered a hospital bed to help patient become more comfy.
[2021-06-29] MEDS: PRAMIPEXOLE 1 MG TABLET PO (21:42)
[2021-06-29] MEDS: GABAPENTIN 600 MG TABLET 1200 MG PO (21:42)
[2021-06-29] MEDS: ZOLPIDEM 5 MG TABLET 12.5 MG PO (21:44)
--- NOTE | 2021-06-29 22:14 | PC.NURSE ---
Patient requested to have his regular sleep meds and was anxious and agitated about his room assignment. Educated patient on safety precautions when someone reports SI and that this RN would speak to provider about home meds and being able to connect CPAP device. For safety, room 13's electronic component lock box is secured for SI. Was given a verbal order by Dr Cabrera to order medications at dosages typically taken at bedtime. Clarified with patient about Ambien because it was listed as an allergy but patient was adamant that there was no allergy to the medication and he takes it safely. Provider is aware. At time of administration patient declined the full dosage of Ambien d/t it not being extended release version. Patient set up home CPAP and was given an inpatient bed. Continue 1:1 safety checks.
--- NOTE | 2021-06-30 01:16 | PC.NURSE ---
Pt lying on gurney,Eyes closed,chest rising and falling
[2021-06-30 06:45] VITALS: BP 146/95; PULSE 84; RESP 14; O2SAT 96
[2021-06-30] MEDS: hydrOXYzine pamoate 25 MG CAPSULE 50 MG PO (09:04)
[2021-06-30] MEDS: PRAMIPEXOLE 0.25 MG TABLET 0.5 MG PO (09:04)
[2021-06-30] MEDS: FAMOTIDINE 20 MG TABLET PO (09:04)
[2021-06-30] MEDS: GABAPENTIN 300 MG CAPSULE 900 MG PO (09:05)
--- NOTE | 2021-06-30 09:06 | CM.SWNOTE ---
Addendum entered by SIDNEY Morrell 06/30/21 10:54: ADD: Per Imani RN at [facility], reviewed clinicals and spoke to ED RN and confirms they can accept pt today and just need to know d/c time. Per ED RN Imani Castro had confirmed pt can arrive by POV and prefer this over BLS if possible. RN Gloria working with pt to see if friend can transport him there and will keep [facility] updated on time of transport. BF Original Note: Patient is a 66 yo male who was admitted to [place] ED on 06/29/21 due to feeling Unsafe being alone. Pt has [employer] and [email or web address] for insurance and his PCP is Cindy Ram at [facility]. EMR was reviewed. Per ED SIDNEY GARRETT consult placed due to pt having suicidal ideation and requesting assistance. JULIUS reviewed the records and pt was last admitted to [facility] about a year ago for BP issues and pt had confirmed his Dtr and her family had been living with him but had just moved to [place] about a year ago and pt now lives alone and unclear if he still has his Sig Other involved. Pt has discussed with ED staff feeling a gradual decline in his mental health since Feb 2021 feeling anhedonia with lack of interest in his hobbies and lack of appetite and overall malaise and then the past few days more significant thoughts of suicidal ideation, sometimes with a plan but currently no plan but does not feel safe in least restrictive environment in the community or home. [facility] but pt feels the couple of different meds have not helped much and he does confirm he sometimes feels anger outbursts but denies any legal involvement. Pt's UDS+ for THC and has his own home CPAP bedside but otherwise independent with ADL's and A&O x3. Per RN, pt has been calm and cooperative with staff and appropriate but not able to confirm he could safely discharge to home alone and still endorsing suicidal ideation. JULIUS called closest MH stabilization Center [facility] in [place] and they are full through the weekend. JULIUS called [facility] [phone] and completed phone screen with intake staff and provided all needed information and then faxed clinicals to their fax#[phone] and their RN will review to determine if they can accept pt today and are holding a bed for him while they review. JULIUS updated RN who will kindly update Dr. Cornejo as well while awaiting review from [facility]. SIDNEY Morrell
[2021-06-30 10:08] VITALS: BP 169/107; PULSE 96; RESP 18; TEMP 36.7; O2SAT 96
--- NOTE | 2021-06-30 10:52 | PC.NURSE ---
pt to go to [facility] stabilization report nurse to nurse done [phone] extension 2 spoke with Imani RN. pt must have 3-5 days of medications or prescriptions for those medications when he arrives. pt can come pov but should come by friend/family instead of driving self. pt agreeable to both. Imani request we call her and update timing of transport when friend has arrived. [employer] HEAD FORMERSyed Ramachandrane also aware and completing her end of transferring. [employer] HADOOP DEVELOPER to complete EMTALA
--- NOTE | 2021-06-30 10:58 | PC.NURSE ---
no EMTALA needed because pt is being discharged and then going [place] [facility]
[2021-06-30] MEDS: ONDANSETRON 4 MG ODT 8 MG SL (11:20)
[2021-06-30 12:46] VITALS: BP 176/90; PULSE 90; RESP 18; TEMP 36.7; O2SAT 96
== END 2021-06-30 13:41 | disposition home or self-care (01) ==
PROVIDERS: Emergency Medicine; Emergency Provider Emergency Medicine; Family Provider Family Medicine; PCP Physician Assistant
DX: R45.851 Suicidal ideations (principal); Z87.891 Personal history of nicotine dependence; Z20.822 Contact with and (suspected) exposure to COVID-19; R03.0 Elevated blood-pressure reading, without diagnosis of hypertension
CPT/HCPCS: 36415; 80053; 80305; 80320; 81003; 82550; 82553; 84443; 84484; 85025; 87635; 93005; 93010; 99284; C9803; A9270

== ENCOUNTER → 2021-11-23 08:26 | Outpatient (CLI) | payer MEDICARE, OTHER, SELFPAY ==
[2020-11-09 15:48] VITALS: BMI 36.9
--- NOTE | 2021-11-23 | DI.US.S_ITS ---
PROCEDURE: US ABDOMEN LIMITED INDICATIONS: EPIGASTRIC PAIN TECHNIQUE: Real-time focused scanning was performed of the abdomen, with image documentation. COMPARISON: [facility], US, ABDOMEN COMPLETE, 03/29/2010, 11:33. [facility], CT, CT ABDOMEN PELVIS W CON, 06/20/2021, 12:34. FINDINGS: The liver demonstrates enlarged size. The liver demonstrates generalized moderately to prominently increased echogenicity. This decreases ultrasound sensitivity for detection of hepatic masses. No findings of gallstones or sludge are seen. The gallbladder wall is not thickened, measuring 3 mm or less. No specific pericholecystic fluid is seen. The sonographic Sales sign is negative. There is no biliary dilatation, the common bile duct measures 3 mm. No significant pancreatic abnormality is seen on these images. This study is limited by body habitus. IMPRESSION: The gallbladder demonstrates a normal sonographic appearance. No biliary dilatation is seen. Enlarged fatty liver. Dictated by: Robert Saini M.D. on 11/23/2021 at 8:16 Approved by: Robert Saini M.D. on 11/23/2021 at 8:17
== END ==
PROVIDERS: Family Provider Family Medicine; PCP Family Medicine; Referring Provider Family Medicine; Visit Provider Family Medicine
DX: R10.13 Epigastric pain (principal); K76.0 Fatty (change of) liver, not elsewhere classified
CPT/HCPCS: 76705

== ENCOUNTER → 2021-12-20 09:47 | Outpatient (CLI) | payer MEDICARE, OTHER, SELFPAY ==
[2020-11-09 15:48] VITALS: BMI 36.9
[2021-12-20 10:19] LABS: High Sensitivity CRP - Cardiac 2.7 mg/L (1.0-3.0)
[2021-12-20 10:30] LABS: NT-proBNP (BNP-Adult 18+) 48 pg/mL (<125); Troponin I < 0.012 ng/mL (0.01-0.034)
== END ==
PROVIDERS: Family Provider Family Medicine; PCP Family Medicine; Referring Provider Family Medicine; Visit Provider Family Medicine
DX: R06.02 Shortness of breath (principal); I10 Essential (primary) hypertension; E78.5 Hyperlipidemia, unspecified; R60.0 Localized edema; R07.9 Chest pain, unspecified
CPT/HCPCS: 36415; 83880; 84484; 86140

== ENCOUNTER → 2022-01-29 16:34 | Outpatient (CLI) | payer MEDICARE, OTHER, SELFPAY ==
[2020-11-09 15:48] VITALS: BMI 36.9
--- NOTE | 2022-01-29 16:37 | DI.CT.S_ITS ---
PROCEDURE: CT ANGIO CHEST PE PROTOCOL INDICATIONS: shortness of breath, fatigue, elevated d-dimer TECHNIQUE: After the administration of intravenous contrast, 2 mm thick sections acquired from the pulmonary apices to the posterior costophrenic angles. 3-dimensional maximum intensity projection (MIP) coronal and sagittal reformats were then acquired through the thorax. For radiation dose reduction, the following was used: automated exposure control, adjustment of mA and/or kV according to patient size. COMPARISON: None. FINDINGS: Image quality: Excellent. Pulmonary arteries: Pulmonary arteries are normal in size, and demonstrate no intraluminal filling defects to suggest central pulmonary embolism. Lungs and pleura: Lungs are clear. No pleural effusions or pneumothorax. Central and peripheral airways are patent. Mediastinum: Heart size is normal, without pericardial effusion. No mediastinal or hilar adenopathy. Thoracic aorta is normal in caliber and enhancement. Esophagus is normal in caliber, without hiatal hernia. Bones and chest wall: No suspicious bony lesions. Ribs and thoracic spine appear intact throughout. Thyroid gland is normal. No axillary or supraclavicular adenopathy. Abdomen: Visualized upper abdominal solid organs appear normal in the early arterial phase of enhancement. IMPRESSION: 1. No pulmonary embolism. 2. No acute abnormality of the chest. Dictated by: Yves Sheth M.D. on 01/29/2022 at 17:16 Approved by: Yves Sheth M.D. on 01/29/2022 at 17:20
== END ==
PROVIDERS: Family Provider Family Medicine; PCP Family Medicine; Referring Provider Family Medicine; Visit Provider Family Medicine
DX: R06.02 Shortness of breath (principal); R53.83 Other fatigue; R79.89 Other specified abnormal findings of blood chemistry
CPT/HCPCS: 71275

== ENCOUNTER → 2022-01-31 09:22 | Outpatient (CLI) | payer MEDICARE, OTHER, SELFPAY ==
[2020-11-09 15:48] VITALS: BMI 36.9
[2022-01-31 11:11] LABS: COVID19 -Nasal RAPID Negative (Negative)
== END ==
PROVIDERS: Family Provider Family Medicine; PCP Family Medicine; Visit Provider Surgery
DX: Z20.822 Contact with and (suspected) exposure to COVID-19 (principal); Z01.812 Encounter for preprocedural laboratory examination
CPT/HCPCS: 87635; C9803

== ENCOUNTER → 2022-01-31 09:23 | Outpatient (CLI) | payer MEDICARE, OTHER, SELFPAY ==
[2020-11-09 15:48] VITALS: BMI 36.9
== END ==
PROVIDERS: Family Provider Family Medicine; PCP Family Medicine; Referring Provider Family Medicine; Visit Provider Family Medicine
DX: R79.89 Other specified abnormal findings of blood chemistry (principal)

== ENCOUNTER 2022-02-01 10:46 | Day surgery (SDC) | payer MEDICARE, OTHER, SELFPAY ==
[2020-11-09 15:48] VITALS: BMI 36.9
--- NOTE | 2022-02-01 | PATH_ITS ---
[facility] Accession Number: [id number] . 01 Material submitted: . PART A: gastrointestinal site - GASTRIC ANTRUM BIOPSY PART B: gastrointestinal site - GASTRIC PYLORIC LESION PART C: duodenum - DUODENUM BIOPSY PART D: gastrointestinal site - RANDOM GASTRIC BIOPSIES . 01 Clinical history: . B: LESION D: R/O H.PYLORI . 01 Diagnosis: A. Designated As Gastric Antrum, Biopsy: Gastric corpus-type mucosa with changes suggestive of proton pump inhibitor therapy. Negative for intestinal metaplasia and dysplasia. No Helicobacter pylori organisms seen on H/E. . B. Gastric Pyloric Lesion, Biopsy: Gastric antral-type mucosa with reactive gastropathy and changes of acute erosive gastritis. Negative for intestinal metaplasia and dysplasia. No Helicobacter pylori organisms seen on H/E. . C. Duodenum, Biopsy: Duodenal mucosa within normal limits. Features of celiac disease are not seen. . D. Random Stomach, Biopsy: Gastric transitional- and corpus-type mucosa with reactive changes. Negative for intestinal metaplasia and dysplasia. Negative for Helicobacter pylori organisms on immunohistochemistry. [facility] 02/08/2022 0839 Local . 01 Electronically signed: . Rosa Elena Cortes MD, Pathologist NPI- [id number] . 01 Gross description: . Part A: GASTRIC ANTRUM BIOPSY: Received in formalin are 2 fragment(s) of walsh, soft tissue measuring 0.1 x 0.1 x 0.1 cm to 0.3 x 0.3 x 0.2 cm submitted entirely in 1 cassette(s) Part B: GASTRIC PYLORIC LESION: Received in formalin are 2 fragment(s) of walsh, soft tissue measuring 0.2 x 0.2 x 0.2 cm to 0.4 x 0.2 x 0.2 cm submitted entirely in 1 cassette(s) Part C: DUODENUM BIOPSY: Received in formalin are 2 fragment(s) of walsh, soft tissue measuring 0.2 x 0.2 x 0.2 cm to 0.4 x 0.2 x 0.2 cm submitted entirely in 1 cassette(s) Part D: RANDOM GASTRIC BIOPSIES: Received in formalin are 2 fragment(s) of walsh, soft tissue measuring 0.2 x 0.2 x 0.2 cm to 0.4 x 0.2 x 0.2 cm submitted entirely in 1 cassette(s) /[facility] 02/04/2022 2204 Local . 01 Microscopic: . Part D. An immunohistochemistry stain for H. pylori, with appropriately staining external controls, is performed and is negative for Helicobacter pylori organisms. . Deeper levels are examined on part B. . * This test was developed and its performance characteristics determined by [facility]. It has not been cleared or approved by the U.S. Food and Drug Administration. The FDA has determined that such clearance or approval is not necessary. This test is used for clinical purposes. It should not be regarded as investigational or for research. . 01 Pathologist provided ICD-10: R10.13 . 01 CPT . 217985, 695901, 424942, 284071, [id number] Specimen Comment: A courtesy copy of this report has been sent to [facility] Performed at: 01 [facility] [address] [place] [address], [place], [place] [id number] MD Randy Bonds MD Phone: [phone]
[2022-02-01 12:20] VITALS: BP 136/82; PULSE 64; RESP 24; TEMP 36.6; O2SAT 98; BMI 38.9
[2022-02-01] MEDS: LACTATED RINGERS 1,000 ML 42 ML IV (12:43)
--- NOTE | 2022-02-01 12:46 | SUR.PREOP ---
Pt states extremely SOB last noc. Better today, but still visibly SOB. Lungs clear. O2 sat 98%. Dr Hameed notified. Will get stat EKG.
--- NOTE | 2022-02-01 13:10 | SUR.PREOP ---
Addendum entered by Magy Denis R.N. 02/01/22 13:12: EKG done. Reviewed by Dr Hameed. No orders at this time. Pt resting comfortably. Appears less SOB. Original Note: EKG done. Reviewed by Dr Hameed.
--- NOTE | 2022-02-01 13:55 | PM.PREOP ---
Pre-operative Note COVID-19 COVID-19 status: Negative Interval Note History & Physical reviewed/Exam performed by Physician: Yes Changes to H&P: Yes H&P completed within 30 days and has changed as indicated here:: Patient states that may have been having some progression of his symptoms. last night he had a severe episode of burning epigastric pain that was so severe he felt short of breath. He does think there was some improvement with the use of omeprazole but overall his symptoms are continuing. Again his gallbladder was checked with an ultrasound in October of this year looked okay. He had a CT scan of chest which was unrevealing for reasons which might cause shortness of breath. He denies any other chest pains and he says he has been seen by a human resources operations manager and fully worked up for cardiac etiologies.
--- NOTE | 2022-02-01 14:41 | PM.OP.EGD ---
Procedure & Clinicians Study performed: EGD and biopsy Same procedure as scheduled: Yes Indications: Mr. Parra is having very bad epigastric pains with feelings of bloating and shortness of breath. Surgeon: Angela Nunez Procedure Notes Procedure in detail: Patient was taken to the endoscopy suite with the help of Anesthesiology placed under conscious patient in a seated position due to patient comfort levels. A time-out was performed. An endoscope was placed into the mouth and advanced easily into the esophagus. The stomach was intubated the scope was retroflexed to see the gastric antrum. The pylorus was inspected and entered. The duodenum was inspected. The stomach had some cobblestone appearance and there was evidence of some gastritis around the pylorus. A small lesion next to the pylorus was biopsied. The lesion was also photographed. Photographs were taken of the duodenum and random biopsies as well. During the exam some green biliary contents did reflux from the duodenum into the stomach. Additionally blood from biopsies that were done in the stomach was refluxing into the esophagus. The esophagus was relatively normal. Photographs were taken of the esophagus. Patient tolerated the procedure well and went in good condition to the postoperative care unit. Findings: gastritis Specimen(s): other (1. gastric antrum, 2. gastric pyloric lesion, 3. Duodenum, 4. Random gastric biopsies for H. pylori. ) Complications: none Post-procedure Recommendations: Continue medication(s) (continue protonix daily. ) and Will call with biopsy results Plan for aftercare: Evidence of reflux. Treat for H. pylori if identified on biopsies.
[2022-02-01 14:46] VITALS: BP 111/69; PULSE 73; RESP 14; TEMP 36.2; O2SAT 96
[2022-02-01 14:52] VITALS: BP 132/70; PULSE 72; RESP 19; O2SAT 96
[2022-02-01 14:56] VITALS: BP 121/79; PULSE 70; RESP 20; TEMP 36.3; O2SAT 96
== END 2022-02-01 15:10 | disposition home or self-care (01) ==
PROVIDERS: Family Provider Family Medicine; PCP Family Medicine; Referring Provider Surgery; Visit Provider Surgery
PROC: 0DJ08ZZ Inspection of Upper Intestinal Tract, Via Natural or Artificial Opening Endoscopic (ICD-10-PCS; CPT 43235; principal; 2022-02-01 11:45)
DX: R10.13 Epigastric pain (principal); I10 Essential (primary) hypertension; G47.33 Obstructive sleep apnea (adult) (pediatric); K29.60 Other gastritis without bleeding; K31.9 Disease of stomach and duodenum, unspecified
CPT/HCPCS: 43239; 93005; J2704

== ENCOUNTER 2022-02-28 10:20 | Emergency (ER) | payer MEDICARE, OTHER, SELFPAY ==
[2020-11-09 15:48] VITALS: BMI 36.9
[2022-02-28] VITALS (11 sets, daily range): BP systolic 121–157; BP diastolic 72–97; PULSE 59–75; RESP 15–24; TEMP 36.8; O2SAT 91–97; BMI 38.2
--- NOTE | 2022-02-28 10:33 | DI.RAD.S_ITS ---
PROCEDURE: XR CHEST 1V INDICATIONS: suspected sepsis TECHNIQUE: One view of the chest was acquired. COMPARISON: [facility], CR, XR CHEST 1V, 11/09/2020, 12:13. FINDINGS: Surgical changes and devices: None. Lungs and pleura: Lungs are clear. No pleural effusions or pneumothorax. Mediastinum: Mediastinal contours appear normal. Heart size is normal. Bones and chest wall: No suspicious bony lesions. Overlying soft tissues appear unremarkable. IMPRESSION: No acute cardiopulmonary process demonstrated radiographically. Dictated by: Tai Myers M.D. on 02/28/2022 at 11:25 Approved by: Tai Myers M.D. on 02/28/2022 at 11:25
[2022-02-28] MEDS: ALBUTEROL/IPRATROPIUM 3 ML AMPUL INH ×2 (10:37→11:45)
[2022-02-28 11:13] LABS: Add Manual Diff / Slide Review NO; Basophils Absolute Auto 100 /uL (0-100); Basophils Percent Auto 0.9 % (0-2); Eosinophils Absolute Auto 200 /uL (0-450); Eosinophils Percent Auto 1.6 % (2-4); Hematocrit 47.8 % (41-53); Lymphocytes Absolute Auto 2600 /uL (1100-4500); Lymphocytes Percent Auto 22.5 % (25-40); Mean Corpuscular HGB Conc 33.5 % (30-36); Mean Corpuscular Hemoglobin 32.4 PG (26-34); Mean Corpuscular Volume 96.8 fL (80-100); Monocytes Absolute Auto 1400 /uL (0-900); Monocytes Percent Auto 11.9 % (3-14); Neutrophils Absolute Auto 7200 /uL (1500-7000); Neutrophils Percent Auto 63.1 % (50-75); Platelet Count 227 X10^3/uL (150-400); Red Blood Cell Count 4.93 X10^6/uL (4.5-5.9); Red Cell Distribution Width 14.5 % (11.6-14.8); White Blood Cell Count 11.5 X10^3/uL (4.5-11.0)
[2022-02-28 11:23] LABS: INR 0.9 (0.9-1.3); Prothrombin Time 10.8 SECONDS (10.1-12.7)
[2022-02-28 11:25] LABS: PTT Partial Thromboplastin Tim 25 SECONDS (26-36)
[2022-02-28 11:28] LABS: Alanine Aminotransferase 73 IU/L (<50); Albumin Globulin Ratio 1.6 (1.0-2.8); Alkaline Phosphatase 58 U/L (38-126); Aspartate Aminotransferase 46 IU/L (17-59); BUN Creatinine Ratio 19.8 (6-22); Bilirubin Total 0.5 mg/dL (0.2-1.3); Blood Urea Nitrogen 16 mg/dL (9-20); Calcium 8.7 mg/dL (8.4-10.2); Carbon Dioxide 29 mmol/L (22-32); Chloride 100 mmol/L (98-107); Estimated Glomerular Filt Rate > 60 mL/min (>60); Globulin 2.5 g/dL (1.7-4.1); Glucose 91 mg/dL (80-110); HEMOLYSIS 19 (0-50); Lipase 78 U/L (23-300); Potassium 3.9 mmol/L (3.4-5.1); Sodium 137 mmol/L (137-145); Total Protein 6.5 g/dL (6.3-8.2)
[2022-02-28 11:28] LABS: COVID-19 CEPHEID 4-PLEX PCR Negative (Negative); Influenza A - CEPHEID Flu A POSITIVE (NEGATIVE); Influenza B - CEPHEID Flu B NEGATIVE (NEGATIVE); Respiratory Syncytial Virus Negative (Negative)
[2022-02-28 11:29] LABS: Lactate (Lactic Acid) 1.4 mmol/L (0.7-2.1)
[2022-02-28 11:45] LABS: Procalcitonin 0.06 ng/mL (<0.5)
--- NOTE | 2022-02-28 11:46 | ED_ITS ---
HPI - SOB/Dyspnea General Chief Complaint: Shortness of Breath/Dyspnea Stated Complaint: congestion/ painfull lungs t-3 Time Seen by Provider: 02/28/22 11:40 Source: patient Mode of arrival: Ambulatory Limitations: no limitations History of Present Illness HPI Narrative: This is a 66-year-old male with history hypertension, dyslipidemia, herpes simplex, testosterone deficiency and chronic back pain. Patient states he is had shortness of breath for the last couple days and some chest discomfort. He states he has been wheezy, he states he has been wheezy in the past he states breathing treatments and inhalers have never been helpful he states he is seen pulmonology and been told does not have any lung disease. He states they never found a source. He did smoke for about 10 years in the late 70s and into the 80s. He does drink 1-2 alcoholic drinks daily, he takes an edible nightly for sleep but no other illicit or IV drugs. Denies any cardiac history he is had stress tests but no cardiac catheterization. He is had multiple orthopedic surgeries but no intra-abdominal or thoracic surgeries. Patient complains of cough and fever since Friday with some shortness of breath as well. He states he was on steroids recently for his back he is unsure if they have been helpful for his breathing in the past. Related Data Home Medications Medication Instructions Recorded Confirmed gabapentin 300 mg capsule 900 mg PO BID 11/12/18 02/01/22 losartan 100 mg tablet 100 mg PO DAILY 01/01/22 02/01/22 metoprolol tartrate 100 mg tablet 100 mg PO DAILY 01/01/22 02/01/22 Previous Rx's Medication Instructions Recorded aspirin 81 mg tablet,delayed 81 mg PO DAILY #30 tabs 11/10/20 release atorvastatin 80 mg tablet 80 mg PO BEDTIME #30 tabs 11/12/20 hydroxyzine HCl 50 mg tablet 50 mg PO QID PRN anxiety #30 tabs 06/30/21 pantoprazole 40 mg tablet,delayed 40 mg PO DAILY #30 tabs 02/01/22 release (Protonix) albuterol sulfate 90 mcg/actuation 8 puff inhalation Q4-6H PRN 02/28/22 aerosol inhaler shortness of breath or wheezing #8.5 grams prednisone 10 mg tablets in a dose See Rx Instructions .Route 02/28/22 pack .COMPLEX #21 ea Allergies Allergy/AdvReac Type Severity Reaction Status Date / Time triazolam [From Halcion] AdvReac Severe Violent, Verified 02/28/22 10:30 aggitated Review of Systems Review of Systems ROS Unobtainable: All systems reviewed & are unremarkable except as noted in HPI and below Patient History Medical History (Updated 02/28/22 @ 11:50 by Anna Cornejo DO) Anxiety Arthritis Back pain Compartment syndrome (~2012) Dizziness Fatty liver GERD (gastroesophageal reflux disease) Gout (~1989) HLD (hyperlipidemia) Kidney stones Neck pain Numbness Numbness and tingling in left arm CINDI on CPAP Pneumonia RBBB (right bundle branch block) RLS (restless legs syndrome) Surgical History Hx of arthroscopy of left knee Hx of elbow surgery Hx of right inguinal hernia repair Hx of tonsillectomy Hx of umbilical hernia repair Status post left unicompartmental knee replacement (~2012) Family History Mother Alive and well Father Natural with unknown cause Social History household members: none Smoking Status: Former smoker alcohol intake: current Smoking Status: Former smoker alcohol intake frequency: holidays/special occasions only Substance Use Type: does not use Exam Narrative Exam Narrative: GENERAL: Alert and oriented x three, male in mild distress. Patient feels warm to the touch. HEENT: Head normocephalic, atraumatic, EOMI, pupils reactive, face symmetric, mo ist mucous membranes NECK: Supple, full range of motion CARDIOVASCULAR: Regular rate and rhythm without murmurs, rubs or gallops. No JVD. No swelling bilateral lower extremities. RESPIRATORY: Breath sounds equal bilaterally, positive wheezes posterior upper, no rales or rhonchi, patient also has some mild upper airway sounds as well. He is able to speak in 4-5 word sentences. Mild tachypnea no accessory muscle use. ABDOMEN: Soft, nontender. Normoactive bowel sounds all 4 quadrants. No guar ding or rebound, rigidity, no mass : No CVA tenderness EXTREMITIES: Normal range of motion, no clubbing or edema. Neurovascularly intact NEUROLOGICAL: Cranial nerves II through XII grossly intact. Moving all extremities SKIN: Warm, dry, no petechiae, no rashes or lesions. Initial Vital Signs Initial Vital Signs: Vital Signs Temperature 98.3 F 02/28/22 10:28 Pulse Rate 61 02/28/22 10:28 Respiratory Rate 24 02/28/22 10:28 Blood Pressure 156/96 H 02/28/22 10:28 Pulse Oximetry 97 02/28/22 10:28 Oxygen Delivery Method 02/28/22 10:28 Course Orders Ordered: ED Orders 02/28/22 10:33 XR chest 1V Stat Covid-19 + FLU A/B + RSV - PCR Stat RT Consult Eval and Treat NOW 02/28/22 10:35 EKG-12 Lead Stat 02/28/22 10:55 Blood Culture Stat Complete Blood Count AUTO DIFF Stat Comprehensive Metabolic Panel Stat Lactate (Lactic Acid) Stat Lipase Stat Partial Thromboplastin Time Stat Procalcitonin Stat Prothrombin Time INR Stat 02/28/22 11:40 BNP [NT-proBNP (BNP-Adult 18+)] Stat Trop I [Troponin I] Stat Discontinued Medications Albuterol (Albuterol 2.5 Mg/3 Ml Neb (Adult)) 5 mg INH NOW ONE Stop: 02/28/22 13:32 Last Admin: 02/28/22 14:06 Dose: 5 mg Documented By: ROSENDO Albuterol/Ipratropium (Albuterol/Ipratropium 3 Ml Ampul) 3 ml INH NOW ONE Stop: 02/28/22 10:37 Last Admin: 02/28/22 10:37 Dose: 3 ml Documented By: ROSENDO Albuterol/Ipratropium (Albuterol/Ipratropium 3 Ml Ampul) 3 ml INH NOW ONE Stop: 02/28/22 11:41 Last Admin: 02/28/22 11:45 Dose: 3 ml Documented By: ZACH Methylprednisolone (Methylprednisolone 125 Mg/2 Ml Vial) 125 mg IV NOW ONE Stop: 02/28/22 11:41 Last Admin: 02/28/22 11:49 Dose: 125 mg Documented By: ZACH Ondansetron HCl (Ondansetron 4 Mg/2 Ml Inj) 4 mg IV NOW PRN PRN Reason: Nausea And Vomiting Reevaluation(s) Reevaluation #1: Patient is feeling improved has mild wheeze but significantly improved from prior. Discussed with patient I would like to given additional nebulized dose. Patient does not wish for prescription for nebulizer although he finds nebulized medication more helpful than inhaler. He is open to spacer and albuterol he has been on recent steroids so will do a tapering dose. Discussed he is had multiple days of symptoms in his outside the window for Tamiflu. Time: 13:32 Vital Signs Vital signs: Vital Signs - 8 hr 02/28/22 11:42 02/28/22 11:44 02/28/22 11:44 Pulse Rate 71 66 Respiratory Rate 24 22 Blood Pressure 157/97 H Pulse Oximetry 96 Oxygen Delivery Method Room Air Oxygen Flow Rate 02/28/22 12:00 02/28/22 12:30 02/28/22 12:30 Pulse Rate 62 61 Respiratory Rate 18 15 Blood Pressure 135/72 Pulse Oximetry 94 91 Oxygen Delivery Method Room Air Oxygen Flow Rate 02/28/22 13:00 02/28/22 13:00 02/28/22 11:45 Pulse Rate 59 L 72 Respiratory Rate 15 20 Blood Pressure 136/80 Pulse Oximetry 93 97 Oxygen Delivery Method Nasal Cannula Oxygen Flow Rate 1 02/28/22 14:11 02/28/22 13:30 02/28/22 13:30 Pulse Rate 69 75 Respiratory Rate 20 24 Blood Pressure 128/78 Pulse Oximetry 93 94 Oxygen Delivery Method Room Air Oxygen Flow Rate 02/28/22 14:00 02/28/22 14:00 02/28/22 14:30 Pulse Rate Respiratory Rate 17 Blood Pressure 121/76 132/80 Pulse Oximetry 92 Oxygen Delivery Method Oxygen Flow Rate 02/28/22 14:30 Pulse Rate 63 Respiratory Rate 16 Blood Pressure Pulse Oximetry 92 Oxygen Delivery Method Oxygen Flow Rate MDM - SOB/Dyspnea Lab Data Result diagrams: 02/28/22 10:55 02/28/22 10:55 Labs: Lab Results 02/28/22 02/28/22 02/28/22 Range/Units 10:33 10:55 10:55 WBC 11.5 H (4.5-11.0) X10^3/uL RBC 4.93 (4.5-5.9) X10^6/uL Hgb 16.0 (13.5-17.5) g/dL Hct 47.8 (41-53) % MCV 96.8 (80-100) fL MCH 32.4 (26-34) PG MCHC 33.5 (30-36) % RDW 14.5 (11.6-14.8) % Plt Count 227 (150-400) X10^3/uL Neut % (Auto) 63.1 (50-75) % Lymph % (Auto) 22.5 L (25-40) % Garden % (Auto) 11.9 (3-14) % Eos % (Auto) 1.6 L (2-4) % Baso % (Auto) 0.9 (0-2) % Neut # (Auto) 7200 H (1448-9299) /uL Lymph # (Auto) 2600 (1100-8999) /uL Garden # (Auto) 1400 H (0-900) /uL Eos # (Auto) 200 (0-450) /uL Baso # (Auto) 100 (0-100) /uL PT 10.8 (10.1-12.7) SECONDS INR 0.9 (0.9-1.3) APTT 25 L (26-36) SECONDS Sodium (137-145) mmol/L Potassium (3.4-5.1) mmol/L Chloride (98-107) mmol/L Carbon Dioxide (22-32) mmol/L BUN (9-20) mg/dL Creatinine (0.66-1.25) mg/dL Estimated GFR (>60) mL/min BUN/Creatinine Ratio (6-22) Glucose (80-110) mg/dL Lactate (0.7-2.1) mmol/L Calcium (8.4-10.2) mg/dL Total Bilirubin (0.2-1.3) mg/dL AST (17-59) IU/L ALT (<50) IU/L Alkaline Phosphatase (38-126) U/L Troponin I (0.01-0.034) ng/mL NT-Pro-B Natriuret Pep (<125) pg/mL Total Protein (6.3-8.2) g/dL Albumin (3.5-5.0) g/dL Globulin (1.7-4.1) g/dL Albumin/Globulin Ratio (1.0-2.8) Lipase (23-300) U/L Procalcitonin (<0.5) ng/mL SARS-CoV-2 (PCR) Negative (Negative) Influenza A (RT-PCR) Flu a positive H (NEGATIVE) Influenza B (RT-PCR) Flu b negative (NEGATIVE) RSV (PCR) Negative (Negative) 02/28/22 02/28/22 02/28/22 Range/Units 10:55 10:55 11:40 WBC (4.5-11.0) X10^3/uL RBC (4.5-5.9) X10^6/uL Hgb (13.5-17.5) g/dL Hct (41-53) % MCV (80-100) fL MCH (26-34) PG MCHC (30-36) % RDW (11.6-14.8) % Plt Count (150-400) X10^3/uL Neut % (Auto) (50-75) % Lymph % (Auto) (25-40) % Garden % (Auto) (3-14) % Eos % (Auto) (2-4) % Baso % (Auto) (0-2) % Neut # (Auto) (9168-2828) /uL Lymph # (Auto) (6406-3879) /uL Garden # (Auto) (0-900) /uL Eos # (Auto) (0-450) /uL Baso # (Auto) (0-100) /uL PT (10.1-12.7) SECONDS INR (0.9-1.3) APTT (26-36) SECONDS Sodium 137 (137-145) mmol/L Potassium 3.9 (3.4-5.1) mmol/L Chloride 100 (98-107) mmol/L Carbon Dioxide 29 (22-32) mmol/L BUN 16 (9-20) mg/dL Creatinine 0.81 (0.66-1.25) mg/dL Estimated GFR > 60 (>60) mL/min BUN/Creatinine Ratio 19.8 (6-22) Glucose 91 (80-110) mg/dL Lactate 1.4 (0.7-2.1) mmol/L Calcium 8.7 (8.4-10.2) mg/dL Total Bilirubin 0.5 (0.2-1.3) mg/dL AST 46 (17-59) IU/L ALT 73 H (<50) IU/L Alkaline Phosphatase 58 (38-126) U/L Troponin I < 0.012 (0.01-0.034) ng/mL NT-Pro-B Natriuret Pep 108 (<125) pg/mL Total Protein 6.5 (6.3-8.2) g/dL Albumin 4.0 (3.5-5.0) g/dL Globulin 2.5 (1.7-4.1) g/dL Albumin/Globulin Ratio 1.6 (1.0-2.8) Lipase 78 (23-300) U/L Procalcitonin 0.06 (<0.5) ng/mL SARS-CoV-2 (PCR) (Negative) Influenza A (RT-PCR) (NEGATIVE) Influenza B (RT-PCR) (NEGATIVE) RSV (PCR) (Negative) Imaging Data Chest x-ray: Radiologist's Impression: [address] [address] XRay Report Signed Patient: Irene Parra MR#: [id number] : 1955 Acct:[id number] Age/Sex: 66 / M Date of Service: 02/28/22 Loc: ED Accession Number: [id number] ?? Procedure: XR chest 1V Ordering Provider: Anna Cornejo D.O. PROCEDURE:? XR CHEST 1V ? INDICATIONS:? suspected sepsis ? TECHNIQUE:? One view of the chest was acquired.? ? COMPARISON:? [facility], , XR CHEST 1V, 11/09/2020, 12:13. ? FINDINGS:? ? Surgical changes and devices:? None.? ? Lungs and pleura:? Lungs are clear.? No pleural effusions or pneumothorax.? ? Mediastinum:? Mediastinal contours appear normal.? Heart size is normal.? ? Bones and chest wall:? No suspicious bony lesions.? Overlying soft tissues appear unremarkable.? ? IMPRESSION:? No acute cardiopulmonary process demonstrated radiographically. ? ? Dictated by: Tai Myers M.D. on 02/28/2022 at 11:25 ? ? Approved by: Tai Myers M.D. on 02/28/2022 at 11:25?? ECG Data Attestation: I personally reviewed and interpreted this ECG as follows: Interpretation: Rate of 57 UT 164 QRS of 94 and QTC of 375. No acute ST changes appreciated. MDM Narrative Medical decision making narrative: 66-year-old male with complaint of fevers, shortness of breath for the past several days. Patient is positive for influenza, initial CBC and CMP are reassuring but troponin and BNP were added on, patient does have wheeze on exam he states he is had these issues in the past he does not typically find bronchodilators helpful. He denies any reported lung pathology was a smoker for about 10 years in the late 70s or early 80s. Chest x-ray today is negative. He is not hypoxic with overall vitals reassuring. Patient labs, chest x-ray are overall reassuring. On repeat evaluation patient appears improved. One additional nebulized dose given here as he has some mild wheeze persisting. He is able to speak in full sentences, 92% at rest is his lowest O2. He feels comfortable to return home suspect he is having some reactive airway secondary to his influenza a and he is had these episodes in the past. Discharge Plan Departure Patient Disposition: Home Clinical Impression: Influenza A Instructions: DI for Influenza -- Adult Activity Restrictions/Additional Instructions: You have tested positive for influenza A today which appears to be the source of your symptoms. Please continue home medications as prescribed. You can use albuterol inhaler 8 puffs every 4 hours as needed. Take steroids until completely gone. Prescription sent to [facility] in [place] Please return if increasing chest pain, shortness of breath, increasing difficulty breathing, passing out, new swelling in your extremities, persistent vomiting or other new or worsening symptoms. Prescriptions: New albuterol sulfate 90 mcg/actuation HFA aerosol inhaler 8 puff inhalation Q4-6H PRN (Reason: shortness of breath or wheezing) Qty: 8.5 0RF prednisone 10 mg tablets,dose pack See Rx Instructions .ROUTE .COMPLEX Qty: 21 0RF Rx Instructions: Take 6 tablets/60 mg p.o. x1 day, then 50 mg p.o. x1 day, then 40 mg p.o. x1 day, then 30 mg p.o. x1 day, then 20 mg p.o. x1 day, then 10 mg p.o. x1 day No Action losartan 100 mg tablet 100 mg PO DAILY metoprolol tartrate 100 mg tablet 100 mg PO DAILY gabapentin 300 mg Capsule 900 mg PO BID aspirin 81 mg Tablet,Delayed Release (Dr/Ec) 81 mg PO DAILY Qty: 30 0RF hydroxyzine HCl 50 mg tablet 50 mg PO QID PRN (Reason: anxiety) Qty: 30 0RF pantoprazole [Protonix] 40 mg tablet,delayed release (DR/EC) 40 mg PO DAILY Qty: 30 0RF atorvastatin 80 mg tablet 80 mg PO BEDTIME Qty: 30 0RF Referrals: Elizabeth Estrada ARNP [Primary Care Provider] - Visit Report Forms: Patient Portal/API
[2022-02-28] MEDS: methylPREDNISolone 125 MG/2 ML VIAL IV (11:49)
[2022-02-28 12:16] LABS: NT-proBNP (BNP-Adult 18+) 108 pg/mL (<125); Troponin I < 0.012 ng/mL (0.01-0.034)
[2022-02-28] MEDS: ALBUTEROL 2.5 MG/3 ML NEB (ADULT) 5 MG INH (14:06)
== END 2022-02-28 14:59 | disposition home or self-care (01) ==
PROVIDERS: Emergency Provider Emergency Medicine; Family Provider Family Medicine; PCP Family Medicine
DX: J10.1 Influenza due to other identified influenza virus with other respiratory manifestations (principal); R07.9 Chest pain, unspecified; Z20.822 Contact with and (suspected) exposure to COVID-19
CPT/HCPCS: 0241U; 36415; 71045; 80053; 83605; 83690; 83880; 84145; 84484; 85025; 85610; 85730; 87040; 93005; 94640; 96374; 99284; J2930; J7613